=== PATIENT | female | born 1945 | race Caucasian/White ===

== ENCOUNTER 2024-06-29 10:35 | Day surgery (SDC) | payer BC, SELFPAY ==
[2024-06-28 13:12] VITALS: BMI 29.2
[2024-06-28 13:46] LABS: % Basophils 0.6 % (0-2); % Eosinophils 3.7 % (0-6); % Immature Granulocytes 0.4 % (0-0.5); % Lymphocytes 22.5 % (20.5-51.1); % Monocytes 6.2 % (1.7-9.3); % Neutrophils 66.6 % (42.2-75.2); Absolute Eosinophils 0.3 10^3/uL (0-0.7); Absolute Lymphocytes 1.6 10^3/uL (1.2-3.4); Absolute Monocytes 0.4 10^3/uL (0.1-0.6); Absolute Neutrophils 4.7 10^3/uL (1.4-6.5); Hematocrit 41.5 % (37.0-47.0); Hemoglobin 13.8 g/dL (12.0-16.0); Mean Corp Hgb Conc. 33.3 g/dL (33.0-37.0); Mean Corpuscular Volume 87.2 fL (81.0-99.0); Nucleated Red Blood Cells % 0 %; Platelet Count 241 10^3/uL (130-400); Red Blood Cell Count 4.76 10^6/uL (4.20-5.40); Red Cell Dist. Width 13.1 % (11.5-14.5)
[2024-06-28 14:21] LABS: ALT (SGPT) 17 U/L (0-35); AST (SGOT) 20 U/L (14-36); Albumin 4.6 g/dl (3.5-5.0); Alkaline Phosphatase 51 U/L (38-126); Blood Urea Nitrogen 18 mg/dl (7-17); Carbon Dioxide 27 mmol/L (22-30); Chloride 102 mmol/L (98-107); Estimated Creatinine Clearance 43 ml/min; Glucose 116 mg/dl (70-99); Potassium 4.5 mmol/L (3.5-5.1); Sodium 137 mmol/L (135-145); Total Bilirubin 0.6 mg/dl (0.2-1.3); Total Protein 6.9 g/dl (6.3-8.2); eGFR > 60.00
--- NOTE | 2024-06-28 17:59 | HPS.HSE ---
Family Physician
-
Family Physician: Kt Early
Chief Complaint
-
Left heart cath
History of Present Illness
78 year-old female, who presented to Dr. Alexander Magana with complaints described as a reflux. Patient has coronary risk factors that include hyperlipidemia age, truncal obesity, as well as strong family history with father having an [place] at 59, mother
with coronary artery disease, diagnosed in her 60s and brother with acute coronary event, at 51. Last stress echocardiogram performed September 2022 showed no evidence of ischemia. Patient had recent coronary CT angiogram which was markedly
abnormal. Test identified diffuse moderate to severe coronary disease, worst being in the left main 60�70% stenosis in the mid-distal vessel. (report scanned).
Medical History
Past Medical History
Past Medical History: Reports Other (see below)
Additional Past Medical History:
HLD
Abnormal CT Angiogram coronary calcium score
GERD
Insomnia
Depression/anxiety
truncal obesity-BMI 29.2
Past Surgical History: Reports Other (cataract)
Social History
Tobacco: Non-smoker
Alcohol: None
Family History
Family History: Early CAD (father age 59, [place]- 90yo,mother CAD in 60s- 88yo, brother ACS/cardiac arrest- 51)
Allergies / Home Medications
Allergies reflects when Allergies were last updated in [employer].
Home Medications with original date entered in [employer]
Allergy/Medication List:
see list
Review of Systems
-
A 12 point ROS was completed and negative except as noted: Yes
Physical Exam
Physical Exam
General: Well Developed and Well Nourished
HEENT: NormoCephalic
Respiratory: Clear and Non Labored Respirations
Cardiac: S1/S2 and Regular Rhythm
GI: Soft, Non Tender and Normal Bowel Sounds
Musculoskeletal: No Edema
Skin: Warm and Dry
Neuro: AO x 3 and Cranial Nerves Intact
Laboratory Results
-
06/28/24 13:19
06/28/24 13:19
Laboratory Results
Total Bilirubin 0.6 mg/dl (0.2-1.3) 06/28/24 13:19
AST 20 U/L (14-36) 06/28/24 13:19
ALT 17 U/L (0-35) 06/28/24 13:19
Alkaline Phosphatase 51 U/L (38-126) 06/28/24 13:19
Impression/Plan
-
IMPRESSION/PLAN:
L heart cath
[2024-06-29] VITALS (20 sets, daily range): BP systolic 103–142; BP diastolic 57–91
--- NOTE | 2024-06-29 16:43 | ITS.CL.PN ---
Supervisor Coating - Procedure Note
Procedure
Procedure Note:
CARDIAC CATHETERIZATION REPORT
Date of Procedure: 06/30/2024
Referring: Dr. Alexander Magana MD
Indication: high-grade left main disease on coronary CTA
PROCEDURE(S)
1. left heart catheterization
2. coronary angiography
ACCESS: 6F right radial artery (closure: radial band)
CATHETERS
1. 6F JR4
2. 6F JL4
MODERATE SEDATION: 25 minutes of moderate sedation was utilized. An independent medical lab scientist was present to assist with and help manage the patient's level of consciousness and physiologic status.
ULTRASOUND GUIDED VASCULAR ACCESS (right radial artery): Ultrasound was utilized for vascular access. The vessel was visualized under ultrasound and noted to be patent. An image of the vessel was stored permanently in the patient's medical record.
Under direct ultrasound guidance, vascular access was obtained using a modified Seldinger technique and a 6 Slovak sheath was placed.
HEMODYNAMIC DATA
LV 131/9 (EDP 12) mmHg
AO 135/71 (mean 97) mmHg
CORONARY ANGIOGRAPHY
Dominance: right
LM: large vessel with an eccentric 80% nodular calcific lesion in the distal vessel
LAD: large vessel giving rise to two small diagonal branches. There is a 40% calcific stenosis in the mid vessel and otherwise mild disease elsewhere.
LCx: moderate caliber vessel giving rise to a moderate caliber OM1, small OM2, and small OM3. There is 50-60% calcific disease in the proximal vessel and otherwise mild luminal irregularities.
RCA: Large vessel giving rise to a small caliber bifurcating RPDA, moderate caliber RPL1, and small RPL2. There is an 80% stenosis in the proximal aspect of the RPL1. There is moderate disease in the proximal limb of the RPDA prior to the vessel
bifurcation.
RADIATION: dose 247 mGy; DAP 14.3 Gy*cm2; fluoroscopy time 4.5 min
CONCLUSIONS
1. severe coronary artery disease as described with high grade calcific distal left main disease
2. normal LV filling pressure and no aortic stenosis
RECOMMENDATIONS
1. expectant management after cardiac catheterization via right radial approach
2. cont. ASA and high intensity statin
3. referral for coronary artery bypass grafting with CONNELLY-LAD and additional grafts to one more more obtuse marginal branches.
Copy to: Dr. Alexander Magana MD (enterprise infrastructure architect); Dr. Kt Early MD (PCP)
Signed: Rahul Melendez MD, PhD
== END 2024-06-29 18:35 | disposition home or self-care (01) ==
LOC: CATH 10:35
PROVIDERS: ATTENDING PHYSICIAN Student in an Organized Health Care Education/Training Program; FAMILY PHYSICIAN Family Medicine; OTHER PHYSICIAN Internal Medicine Cardiovascular Disease
DX: I25.10 Atherosclerotic heart disease of native coronary artery without angina pectoris (principal); E78.5 Hyperlipidemia, unspecified; K21.9 Gastro-esophageal reflux disease without esophagitis; Z82.49 Family history of ischemic heart disease and other diseases of the circulatory system; Z79.82 Long term (current) use of aspirin
CPT/HCPCS: 99152; 99153; C1894; 36415; 76937; 80053; 85025; 93005; 93458; Q9967

== ENCOUNTER 2024-07-13 07:33 | Inpatient (IN) | payer OTHER, SELFPAY ==
[2024-07-12 08:27] VITALS: BMI 29.0
[2024-07-12 09:28] LABS: Urine Albumin Negative (Neg - Trace); Urine Bilirubin Negative (Negative); Urine Character Clear (Clear); Urine Color Yellow; Urine Glucose Negative (Negative); Urine Ketone Negative (Negative); Urine Leukocyte 1+ (Negative); Urine Nitrite Negative (Negative); Urine Occult Blood Negative (Negative); Urine Urobilinogen Negative (Neg - 1+)
[2024-07-12 09:31] LABS: % Basophils 0.4 % (0-2); % Eosinophils 4.3 % (0-6); % Immature Granulocytes 0.6 % (0-0.5); % Lymphocytes 22.3 % (20.5-51.1); % Monocytes 5.5 % (1.7-9.3); % Neutrophils 66.9 % (42.2-75.2); Absolute Eosinophils 0.3 10^3/uL (0-0.7); Absolute Lymphocytes 1.6 10^3/uL (1.2-3.4); Absolute Monocytes 0.4 10^3/uL (0.1-0.6); Absolute Neutrophils 4.7 10^3/uL (1.4-6.5); Hematocrit 41.5 % (37.0-47.0); Hemoglobin 13.9 g/dL (12.0-16.0); Mean Corp Hgb Conc. 33.5 g/dL (33.0-37.0); Mean Corpuscular Hgb 29.4 pg (27.0-31.0); Mean Corpuscular Volume 87.7 fL (81.0-99.0); Mean Platelet Volume 9.9 fL (7.4-10.4); Nucleated Red Blood Cells % 0 %; Platelet Count 235 10^3/uL (130-400); Red Blood Cell Count 4.73 10^6/uL (4.20-5.40); Red Cell Dist. Width 13.2 % (11.5-14.5)
[2024-07-12 09:41] LABS: PT 13.5 Sec (11.4-14.6)
[2024-07-12 09:42] LABS: APTT 28.9 Sec (23.4-35.0)
[2024-07-12 10:19] LABS: ALT (SGPT) 20 U/L (0-35); AST (SGOT) 23 U/L (14-36); Albumin 5.1 g/dl (3.5-5.0); Alkaline Phosphatase 51 U/L (38-126); Blood Urea Nitrogen 16 mg/dl (7-17); Carbon Dioxide 28 mmol/L (22-30); Chloride 102 mmol/L (98-107); Direct Bilirubin 0.2 mg/dl (0.0-0.4); Estimated Creatinine Clearance 49 ml/min; Glucose 85 mg/dl (70-99); Potassium 4.4 mmol/L (3.5-5.1); Sodium 140 mmol/L (135-145); Total Bilirubin 0.8 mg/dl (0.2-1.3); Total Protein 7.1 g/dl (6.3-8.2); eGFR > 60.00
[2024-07-12 10:20] LABS: Urine Mucus Many
[2024-07-12 10:21] LABS: Urine Amorphous Seen; Urine Red Blood Cell 0-2 /HPF (0-2)
[2024-07-12 10:42] LABS: Glycohemoglobin (HgbA1c) 5.2 % (4.0-5.6)
--- NOTE | 2024-07-12 10:42 | CM ---
spoke to pt in PAT's, she is prev indep, lives alone in an apt with 2 steps to enter. her neice and son are closeby and supportive, and said someone will stay with her overnight for a few nights. she denies any dme's, she is agreeable to a f/u
visit from the ct transitional care nurse after dc. cm role explained and all questions answered.
--- NOTE | 2024-07-12 23:30 | W.PN.CT ---
Assessment / Plan
-
Assessment:
-S/P Standard sternotomy/ CABG x 4 (In situ CONNELLY to LAD, Ao to RSVG to OM 1, Ao to RSVG to RPL B sequential to RPDA)/Harvesting of internal mammary artery/Endoscopic vein harvesting of right lower extremity/Left atrial appendage exclusion [35 mm
clip], by Dr Perez, 07/13/24, pod#1
-Obstructive CAD involving 80% RCA/80% distal LM
-Abnormal CT Angiogram coronary calcium score
-Strong family hx of CAD
-LVEF 55-60% per intraop BERNARDO
-HLD
-Class 1 obesity (BMI 30)
-GERD/Hiatal hernia
-Insomnia
-Depression/anxiety
-Vertigo
-S/p cardiac cath, 06/29/24
-S/p Cataract surgery, 09/2023
-S/P Appendectomy
-Acute postop blood loss/Anemia (stable without transfusion)
-Acute postop atelectasis
-Acute postop hypovolemia with subsequent hypervolemia
Plan:
-No major issues overnight. Hemodynamically and neurologically stable
-Successfully extubated yesterday 07/13/24 @ 1755
-Weaned off Levophed gtt overnight, remains on Insulin gtt per protocol
-No swan, U/O mL since OR
-Current rhythm is NSR @ 70 bpm
-Monitor chest tube output: 2meds , L pl . CXR this AM looks clear with mild atelectasis on my review. F/U official report
-Cont. current meds (ASA, Plavix, Crestor, Amiodarone, Lopressor if PM permits)
-D/C'd swan and a-line @
-D/C'd antoinette @ 0600
-Will transition to tele phase today when off insulin gtt per protocol
-Maintain cordis
-Maintain temporary PW (will pull in 1-2 days)
-Encourage use of IS
-Wean off of O2 as tolerated
-OOB into chair/Ambulate
Subjective
-
Date of Service: July 12, 2024
Objective Data
-
Lab Results
07/12/24 08:41
07/12/24 08:41
PT 13.5 Sec (11.4-14.6) 07/12/24 08:41
INR 1.00 07/12/24 08:41
APTT 28.9 Sec (23.4-35.0) 07/12/24 08:41
[2024-07-13] VITALS (13 sets, daily range): BP systolic 83–110; BP diastolic 41–73
[2024-07-13] MEDS: BACTROBAN 2% OINTMENT 1 APPLIC NASAL ×2 (07:57→20:34)
[2024-07-13] MEDS: MAGNESIUM OXIDE 500 MG PO (07:57)
[2024-07-13] MEDS: LOPRESSOR 25 MG PO (07:57)
[2024-07-13] MEDS: PROTONIX 40 MG PO (07:57)
--- NOTE | 2024-07-13 08:01 | W.CVOR.SURPR ---
CVOR Surgeon Immed Pre Op
-
I have examined this patient prior to performance of the scheduled procedure.
The patient's condition is unchanged from the time of the dictated/written History and
Physical and the patient is able to undergo the scheduled procedure.
CABG + TALIB Clip
--- NOTE | 2024-07-13 08:08 | PTCARENOTE ---
Received pt into [address] Perez this am; pt confirmed 2 CHG showers at home and NPO since 2200 07/12/24; Xanax and Sertraline take per Dr Perze at 0600; medication list reviewed with patient; education provided on surgery; family at
bedside and updated; awaiting CVOR.
[2024-07-13 08:58] LABS: Urine Albumin Negative (Neg - Trace); Urine Bilirubin Negative (Negative); Urine Character Clear (Clear); Urine Color Yellow; Urine Glucose Negative (Negative); Urine Ketone Negative (Negative); Urine Leukocyte Negative (Negative); Urine Nitrite Negative (Negative); Urine Occult Blood Negative (Negative); Urine Specific Gravity 1.005 (<1.030); Urine Urobilinogen Negative (Neg - 1+)
[2024-07-13 09:37] LABS: ACT+ - POC 104 Seconds (82-134)
[2024-07-13 09:40] LABS: Glucose - POC 123 mg/dl (70-99); HCO3 - POC 24 mmol/L (21-28); Hematocrit - POC 31 % PCV (37-47); Hemodilution- POC No; Hemoglobin Calculated - POC 10.7; Ionized Calcium - POC 1.15 mmol/L (1.15-1.33); Lactate - POC 0.46 mmol/L (0.36-0.75); O2 Saturation %Calculated-POC 99.9 % (94-98); PCO2 - POC 36 mmHg (35-48); PO2 - POC 279 mmHg (83-108); Sodium - POC 142 mmol/L (136-145); Specimen Type - POC Arterial; pH - POC 7.44 (7.35-7.45)
[2024-07-13 10:31] LABS: ACT+ - POC 540 Seconds (82-134)
[2024-07-13 10:53] LABS: ACT+ - POC 609 Seconds (82-134)
[2024-07-13 11:24] LABS: ACT+ - POC 504 Seconds (82-134)
--- NOTE | 2024-07-13 11:39 | CM ---
pt in OR today, cm to follow
[2024-07-13 11:55] LABS: B.E. - POC 2.5 mmol/L; Glucose - POC 163 mg/dl (70-99); HCO3 - POC 28 mmol/L (21-28); Hematocrit - POC 27 % PCV (37-47); Hemodilution- POC Yes; Ionized Calcium - POC 1.05 mmol/L (1.15-1.33); O2 Saturation %Calculated-POC 99.9 % (94-98); PCO2 - POC 50 mmHg (35-48); PO2 - POC 337 mmHg (83-108); Potassium - POC 5.1 mmol/L (3.5-5.1); Sodium - POC 141 mmol/L (136-145); Specimen Type - POC Arterial; pH - POC 7.37 (7.35-7.45)
[2024-07-13 11:58] LABS: ACT+ - POC 101 Seconds (82-134)
[2024-07-13 12:13] LABS: B.E. - POC 0.3 mmol/L; Glucose - POC 135 mg/dl (70-99); HCO3 - POC 26 mmol/L (21-28); Hematocrit - POC 26 % PCV (37-47); Hemodilution- POC Yes; Hemoglobin Calculated - POC 8.9; Ionized Calcium - POC 0.93 mmol/L (1.15-1.33); Lactate - POC < 0.30 mmol/L (0.36-0.75); O2 Saturation %Calculated-POC 99.9 % (94-98); PCO2 - POC 45 mmHg (35-48); PO2 - POC 351 mmHg (83-108); Potassium - POC 5.1 mmol/L (3.5-5.1); Sodium - POC 139 mmol/L (136-145); Specimen Type - POC Arterial; pH - POC 7.37 (7.35-7.45)
[2024-07-13 12:18] LABS: B.E. - POC -2.7 mmol/L; Glucose - POC 191 mg/dl (70-99); HCO3 - POC 21 mmol/L (21-28); Hematocrit - POC 24 % PCV (37-47); Hemodilution- POC Yes; Hemoglobin Calculated - POC 8.3; Ionized Calcium - POC 1.44 mmol/L (1.15-1.33); Lactate - POC 1.81 mmol/L (0.36-0.75); O2 Saturation %Calculated-POC 97.3 % (94-98); PCO2 - POC 29 mmHg (35-48); PO2 - POC 87 mmHg (83-108); Potassium - POC 4.3 mmol/L (3.5-5.1); Sodium - POC 142 mmol/L (136-145); Specimen Type - POC Arterial; pH - POC 7.46 (7.35-7.45)
--- NOTE | 2024-07-13 12:34 | W.PN.CT.SURG ---
CT Surgery Operative Note
-
CARDIAC SURGERY OPERATIVE REPORT
Preoperative Diagnosis: Multivessel Coronary Artery Disease with involvement of the left main
Postoperative Diagnosis: Same
Procedure(s) Performed:
1. Standard sternotomy aortic and right atrial cannulation
2. Harvesting of internal mammary artery
3. Coronary artery bypass grafting x 4 (In situ CONNELLY to LAD, Ao to RSVG to OM 1, Ao to RSVG to RPL B sequential to RPDA)
4. Left atrial appendage exclusion [35 mm clip]
5. Endoscopic vein harvesting of right lower extremity
6. Transesophageal echocardiography
7. Placement temporary ventricular pacing wire
Date of Surgery: 07/13/2024
Comorbidities:
1. Multivessel coronary artery disease involving the distal left main, high-grade obstruction
2. Stable angina
3. Hyperlipidemia
4. Hypertension
5. GERD
6. Hiatal hernia
7. Depression/anxiety
Attending Surgeon: Donovan Perez MD, MS
Assistants: Mita Sanchez PA-C (present and necessary to personalized living assistant, endoscopic vein harvest, retraction, suction, exposure, suture management, and wound closure under my direction)
Anesthesiology: Fabian Blum MD and Camelia Michelle CRNA
Scrub and Circulating RNs: Gibson Osborne RN, Sabiha Chopra RN
Superintendent Landfill Operations: Rica Leon CCP
Anesthesia: GETA
EBL: per perfusion records
Products: None
CPB Time: 74 minutes
Aortic Cross Clamp Time: 66 minutes
Indication(s) for Procedures: This is a 78-year-old female with a strong family history of coronary artery disease. She underwent a left heart cath and was found to have significant high-grade distal left main disease as well as a PLASTER HELPER to the RPL B.
She has frequent GERD like symptoms which is likely her angina equivalent. Given her disease pattern she was offered surgical revascularization. Given her elevated [id number] score her left atrial appendage was planned to be ligated at time of
surgery.
Conduit(s) Quality:
CONNELLY -excellent/skeletonized
RSVG -good/minor thickening and some varicosities but overall pretty much uniform
Target(s) Quality:
RPL B and PDA -good/overall small size targets were able to accommodate a 1.5 mm probe, thin-walled, flow probe assessment yielded a mean flow of approximately 12 to 15 cc a minute with a pulsatile index of 5.9
OM -good/mean flow of approximate 21 cc a minute with a pulsatility index of 2.6
LAD -excellent/this was her best quality target, mean flow of 25 cc a minute with a pulsatile index of 3.0
Findings: Her left ventricular ejection fraction preoperatively was approximately 50% with no significant regional wall motion abnormalities. Following surgery EF did look more vigorous at 60% with no new regional wall motion abnormalities. The
CONNELLY was harvested in a skeletonized fashion. Following bypass grafting, test dose cardioplegia was given down each distal and confirmed patency and hemostasis. Each distal was probed both proximally and distally to confirm disease and patency,
respectively. Her left atrial appendage was verified to be free of any thrombus or debris preoperatively and found to be totally occlusive postoperatively with a left atrial appendage clip [serial number [id number]]. She did not require any blood
products, she was in sinus rhythm after short period of ventricular pacing.
Description of Procedure: The patient was taken to the operating room. Their identity and procedure to be performed were verified and they were positioned supine on the operating table. Induction via general anesthesia with endotracheal intubation
was performed and central venous access and arterial monitoring were inserted. A preoperative transesophageal echocardiogram was performed to assess cardiac function and valvular function. The patient was then prepped and draped from chin to feet in
a sterile fashion. A preoperative time-out was performed with all members of the team present. A midline chest incision was performed along with median sternotomy. Simultaneous endoscopic access of the right lower extremity for saphenous vein
harvest was obtained along with administration of an initial 5,000 units of IV heparin. A RulTract sternal retractor was positioned to exposure the left internal mammary bed. The mammary was harvested and found to have good flow. A bulldog clamp was
applied to the distal end of the mammary after dividing it. It was wrapped in a papaverine soaked RayTec and replaced back into the left hemithorax. The RulTract was exchanged for a median sternal retractor. The innominate vein was isolated. Full
heparinization was given (a total of 40,000 units). We created a pericardial well. The aortic cannulation site was chosen where it was soft, pliable, and free of calcium. Cannulation was performed with an arterial cannula in the ascending aorta and
a triple-stage venous cannula through the right atrial appendage. The arterial cannula line had an appropriate bounce and correlating pressures with test dosing. Next, a root vent/antegrade cannula was inserted into the ascending aorta. The ACT was
confirmed to be over 400 and retrograde autologous priming was performed before commencing cardiopulmonary bypass. The pulmonary artery was away from the aorta to facilitate a clamp site. The aortic cross-clamp was placed after decreasing
the flow on the bypass and mean arterial pressure. A total of 1.2L initial dose of antegrade Del-Nido cardioplegia solution was given and planned for re-dosing every 75 minutes as necessary. There was rapid electro-mechanical arrest of the heart at
300 cc of cardioplegia. The left ventricle was observed for distention on echocardiogram and manual palpation. Cold slush was placed into a sponge and topically on the RV while we systemically cooled to 34 degrees centigrade. Once heart was fully
arrested it was rotated medially and the left atrial appendage was clipped after dividing the ligament of Moise.
I positioned the heart to expose the distal right coronary at the posterior lateral artery. A kake blade was used to expose the coronary and perform the arteriotomy. Coronary Goff scissors were used to enlarge the incision. The saphenous vein was
trimmed and beveled to an appropriate size. The distal anastomosis was performed using 8-0 prolene in an end-to-side fashion. And secured with a micro core knot antegrade cardioplegia was administered into the graft. Appropriate hemostasis and flow
were confirmed. The graft was then measured in order to accommodate a sequential graft to the RPDA. The underbelly of the vein graft was divided with a knife and enlarged with Goff scissors. The distal graft was prepared in a similar fashion. A
obub-np-rkym anastomosis was created with 8-0 Prolene and secured with a micro core knot. Antegrade cardioplegia was given down the graft with the distal end clamped. The graft was measured for length to the aorta and cut. A suitable site on the
obtuse marginal was chosen. We dissected and prepared the distal target in a similar fashion. An end-to-side anastomosis was created with a 8-0 prolene and secured with a micro corner. Antegrade cardioplegia was administered into the graft.
Appropriate hemostasis and flow were confirmed. The graft was measured for length to the aorta and cut. A suitable target on the mid/distal left anterior descending was identified. We dissected and prepared the distal target in a similar fashion. We
retrieved the CONNELLY from the chest and created a pericardial opening while being cognizant of the phrenic nerve to facilitate the course of the mammary. The distal end of the mammary was prepped and beveled to size. We verified orientation and length
of the LUCIO and found brisk flow. An end-to-side anastomosis was created with a 7-0 prolene. We temporarily released the bulldog clamp on the mammary to inspect flow. Perfusion to the LAD territory was visualized and hemostasis was confirmed. The
bull clamp was replaced on the mammary. The heart was filled and the root was distended with antegrade cardioplegia to make final assessment of graft length and orientation. We created 2 aortotomies using a #11 blade then a 4.0mm aortic punch. The
proximal anastomoses were created in an end-to-side fashion using 6-0 prolene. At the the same time, we re-warmed to 36.5 degrees centigrade. The bulldog clamp was removed from the mammary. Temporary bipolar ventricular pacing wires were placed on
the base of the right ventricle. The patient was placed in a Trendelenburg position and flows on bypass were lowered. The aortic cross clamp was removed and flows were slowly brought back up. All bypass grafts were inspected and were free from
kinking or twisting. The distal and proximal anastomoses appeared hemostatic. Once transesophageal echocardiography appeared satisfactory for de-airing, the flows were temporarily lowered for root vent removal. After verifying acceptable
parameters, we initiated weaning from cardiopulmonary bypass. Once we were off cardiopulmonary bypass, the venous cannula was clamped and removed. A test dose of protamine was administered and the patient was monitored for any adverse reaction
before resuming protamine. Once half of the protamine dose was delivered, pump suckers were turned off and the systolic blood pressure was lowered for aortic decannulation. The aortic cannula was removed and pursestrings were tied down. All
cannulation sites were oversewn with a 4-0 prolene. The mammary bed was inspected and hemostasis was confirmed. Once the mediastinum was hemostatic, 19Fr Lonnie drain was placed in the left pleural cavity and two 24Fr Lonnie drains were placed within
the pericardium. The sternum was approximated with 4 #7 single and 3 #8 double stainless steel wires. Fascia was approximated with #1 vicryl suture. The subcutaneous, dermis and epidermis were closed in layers in a running fashion. The skin wound
was cleansed and dressed.
All instrument, sponge, and needle counts were confirmed to be correct x 2 at the end of the operation. The patient was transferred to the cardiac intensive care unit in critical but stable condition.
I, Dr. Donovan Perez, was present, scrubbed for, and performed all critical elements of this procedure.
Donovan Perez MD, MS
Cardiothoracic Surgeon
[facility]
This operative dictation was created using the [employer] dictation system. Please excuse any grammatical, typographical, or 'sound alike' errors
[2024-07-13] MEDS: LR 250 ML IV ×3 (13:20→19:00)
[2024-07-13] MEDS: CALCIUM CHLORIDE 10% SYRINGE 500 MG IV (13:20)
[2024-07-13 13:23] LABS: B.E. -0.8 mmol/L; HCO3 23.2 mmol/L (21-28); Ionized Calcium 1.27 mMOL/L (1.15-1.33); PCO2 35 mmHg (32-35); PO2 134 mmHg (83-108); Potassium 3.8 mMOL/L (3.5-5.1); Sodium 138 mMOL/L (136-145); pH 7.43 (7.35-7.45)
[2024-07-13 13:24] LABS: O2 Therapy vent
--- NOTE | 2024-07-13 13:30 | PTCARENOTE ---
Patient received from CVOR @1310. SHRUTI. Pt intubated and sedated. Sinusbradycardia on monitor SBP 60s on arrival, CVNP at bedside 500mg Calcium given and LR 500 bolus. RIJ Corids/SLIC, Left A-line and PIV x1 all patent, all lines leveled and
zeroed; Precedex and Insulin infusing see flow sheet for details. Radial pulses present bilateral. Pedal pulses present w/ Doppler. ETT size 8, 22 @ the lip. Vent settings SIMV 470/12/5/40. CT x3 to -20 wall suction no air leak, crepitus or
tidaling. Bowel sounds hypoactive. Winter draining clear yellow urine WNL. Surgical dressing C/D/I. Dilaudid given for pain see MAR for details. See nursing documentation for further details.
[2024-07-13] MEDS: DILAUDID 0.5 MG IV ×2 (13:31→21:09)
[2024-07-13 13:36] LABS: APTT 26.8 Sec (23.4-35.0); INR 1.34; PT 16.8 Sec (11.4-14.6)
--- NOTE | 2024-07-13 13:36 | W.PN.CD ---
Addendum entered and electronically signed by Pj Mir MD 07/13/24 16:03:
Patient seen and examined in collaboration with CLIP LOADING MACHINE FEEDER; agree with below.
-78-year-old female admitted for CABG today.
-Clinically stable postop; on low-dose Levophed.
-Remains intubated.
-Continue youth nutritional monitor.
-Routine postsurgical care as directed by CT Surgery.
-Will follow.
Original Note:
Today's Communication / Plan
-
Follow telemetry
Postoperative management per CT surgery
Impression / Plan
-
I/P: 78F with an elevated coronary calcium score who endorsed chest discomfort and had a CT angiogram which was abnormal and prompted cardiac catheterization. Cardiac catheterization demonstrated severe CAD with high-grade calcific distal left main
disease and she presents today for CABG
Outpatient locomotive inspector: Dr. Alexander Franklin
CAD s/p CABG x 4 (In situ CONNELLY to LAD, Ao to RSVG to OM 1, Ao to RSVG to RPL B sequential to RPDA) & TALIB clip by Dr. Perez on 07/13/2024
-Pre-LVEF 50%, post LVEF 60% without RWMA
-Responded well to IV fluids post op
-Postoperative EKG sinus bradycardia with first-degree AV block, stable
-Follow telemetry
-Postoperative management per CT surgery
Dyslipidemia, on rosuvastatin 20 mg, goal LDL <55
SUBJECTIVE:
Intubated and sedated. Operative report reviewed.
Physical Exam
Vital Signs/Labs
Vital Signs
Temp Pulse Resp Pulse Ox
98.3 F 61 12 99
07/13/24 08:40 07/13/24 13:20 07/13/24 13:20 07/13/24 13:20
07/12/24 07/13/24 07/14/24
06:59 06:59 06:59
Actual Weight 65.1 kg
PT 13.5 Sec (11.4-14.6) 07/12/24 08:41
INR 1.00 07/12/24 08:41
APTT 28.9 Sec (23.4-35.0) 07/12/24 08:41
Physical Exam
Constitutional: No acute distress and Comfortable
EENT: Anicteric and Moist mucous membranes
Cardiovascular: Rhythm & rate is regular, Pedal edema is absent, S1S2 is normal and Rub present
Respiratory: Lungs clear to auscul. and Other (Mechanical ventilation)
GI: Soft, Distention absent, Flat, Non tender and Normal bowel sounds
Neuro/Psych: Other (Sedated)
Other: Skin (Warm and dry without edema)
Data Reviewed
-
Date of Service: July 13, 2024
EKG: Report Reviewed by me
Labs: Labs Reviewed by me
Old Records: Reviewed
[2024-07-13 13:38] LABS: Hematocrit 28.7 % (37.0-47.0); Platelet Count 195 10^3/uL (130-400)
--- NOTE | 2024-07-13 13:43 | W.PN.UPDATE ---
Update Note
Progress Note Update
78-year-old female is electively admitted on 07/13/2024 for CABG due to left main/triple-vessel coronary disease.
Blood:� none
Wires:� bipolar V-wire
Infusions: Levophed off on arrival, Insulin
Sedatives:� Precedex 0.6
�
NEURO: sedated, pupils +2mm B/L
RESP: #8OT @22cm> 470/40%/12/5. Lungs clear B/L. 2 mediastinal (15cc on arrival) and L pleural (15cc on arrival) chest tubes to -20cm suction. Sanguineous drainage, no air leak, no crepitus
CV: RRR +S1, S2, no S3, no�rub, no murmur. Dermabond to median sternotomy. RIJ w/slick intact. Surgical bra intact
ABD: obese, round, soft, no BS
EXT: no edema, +2/4 DP pulses B/L, no femoral bruit, RLE SELVIN wrap intact; left radial A-line intact
: Winter with clear yellow urine
�
A/P: POD #0 s/p CABG x 4 (CONNELLY to LAD, SVG to OM 1, SVG to RPL B sequential to RPDA), eft atrial appendage exclusion [#35 mm clip]
BERNARDO: EF�55-60%, tr-mild MR, Mild TR
- wean and extubate
- ETT low>repositioned @ 20cm. Repeat CXR-adequate position
#CAD
- will require ASA, Plavix, high intensity statin
- hold beta-caitlin if HR <55
# Acute post-op hypovolemia
- LR bolus, adjusting Levophed to maintain SBP 90-130mmHg
�
# acute surgical blood loss anemia-expected
- trend CBC
�
# Post-op hyperglycemia (POC glucose 146)
- insulin infusion x 24h
- pre-op A1C 5.2
�
# Anxiety
- resume Sertraline, Ambien and prn xanax POD #1
# GERD
- Protonix while receiving Plavix (on Pepcid @ home)
--- NOTE | 2024-07-13 13:50 | PTCARENOTE ---
CRX obtained, CV LOAD TEST MECHANIC at bedside. ETT pulled back from 22 to 20. Repeat CRX obtained to confirm placement.
[2024-07-13 14:02] LABS: Blood Urea Nitrogen 14 mg/dl (7-17); Estimated Creatinine Clearance 65 ml/min; Glucose 140 mg/dl (70-99)
[2024-07-13 14:04] LABS: Glucose - Point of Care 118 mg/dl (70-99)
[2024-07-13 14:04] LABS: Glucose - Point of Care 149 mg/dl (70-99)
[2024-07-13] MEDS: KCL 50 IV ×2 (14:21→15:35)
[2024-07-13] MEDS: ANCEF 10 IV ×2 (14:46)
[2024-07-13] MEDS: ZOLOFT PO (14:47)
[2024-07-13] MEDS: NSS 500 IV ×2 (14:47→21:41)
[2024-07-13] MEDS: NEURONTIN PO ×2 (14:47→17:23)
[2024-07-13] MEDS: CRESTOR PO (14:47)
[2024-07-13] MEDS: TYLENOL PO (14:47)
[2024-07-13 15:06] LABS: Glucose - Point of Care 106 mg/dl (70-99)
--- NOTE | 2024-07-13 15:31 | PTCARENOTE ---
Respiratory at bedside. Patient placed on CPAP.
[2024-07-13] MEDS: OFIRMEV 100 IV (16:00)
[2024-07-13 16:10] LABS: B.E. - POC 0.1 mmol/L; Blood Urea Nitrogen - POC 14 mg/dl (3-120); Chloride - POC 110 mmol/L (96-111); Creatinine - POC 0.56 mg/dl (0.3-1.0); Glucose - POC 154 mg/dl (70-99); HCO3 - POC 24 mmol/L (21-28); Hematocrit - POC 28 % PCV (37-47); Hemodilution- POC Yes; Hemoglobin Calculated - POC 9.7; Lactate - POC 1.89 mmol/L (0.36-0.75); PCO2 - POC 36 mmHg (35-48); PO2 - POC 126 mmHg (83-108); Potassium - POC 3.6 mmol/L (3.5-5.1); Sodium - POC 143 mmol/L (136-145); Specimen Type - POC Arterial; pH - POC 7.44 (7.35-7.45)
[2024-07-13 16:11] LABS: Glucose - Point of Care 94 mg/dl (70-99)
[2024-07-13 16:16] LABS: B.E. - POC 0.2 mmol/L; Blood Urea Nitrogen - POC 14 mg/dl (3-120); Chloride - POC 107 mmol/L (96-111); Creatinine - POC 0.68 mg/dl (0.3-1.0); Glucose - POC 100 mg/dl (70-99); HCO3 - POC 27 mmol/L (21-28); Hematocrit - POC 33 % PCV (37-47); Hemodilution- POC Yes; Hemoglobin Calculated - POC 11.1; Ionized Calcium - POC 1.39 mmol/L (1.15-1.33); Lactate - POC 1.56 mmol/L (0.36-0.75); O2 Saturation %Calculated-POC 98.3 % (94-98); PCO2 - POC 50 mmHg (35-48); PO2 - POC 120 mmHg (83-108); Potassium - POC 5.2 mmol/L (3.5-5.1); Sodium - POC 142 mmol/L (136-145); Specimen Type - POC Arterial; pH - POC 7.33 (7.35-7.45)
--- NOTE | 2024-07-13 16:16 | PTCARENOTE ---
Blood sample obtained. CVNP at bedside for EPOC ABG. ABG resulted per CVNP place patient back on SIMV and recheck in 1 hr.
--- NOTE | 2024-07-13 16:41 | PTCARENOTE ---
Patient turned and repositioned. No dumping noted in chest tubes. Mouth care provided, suction and swabbed teeth.
[2024-07-13 17:06] LABS: Glucose - Point of Care 116 mg/dl (70-99)
--- NOTE | 2024-07-13 17:18 | PTCARENOTE ---
Respiratory at bedside. Patient placed back on CPAP.
[2024-07-13] MEDS: PACERONE PO (17:23)
--- NOTE | 2024-07-13 17:31 | CON.INTV ---
Consultation
Consultation Request
Date/Time Consultation Requested: 07/13/2024
Date/Time Consultation Performed: 07/13/2024
Requesting Provider: Donovan Perez
Performing Provider: Amrik Hernández
Reason for Consultation: post cardiac surgery
Medical History
-
Chief Complaint: Chest discomfort
History of Present Illness:
Patient is a 78-year-old female with a history of chest discomfort and elevated calcium score who had a CT angiogram which was abnormal which was followed by cardiac catheterization demonstrating severe coronary artery disease. Patient was
subsequently referred for coronary artery bypass graft. Patient today had CABG performed and was transferred to CVICU postsurgically. Final Block Press Operator consult was requested for further management.
Past medical history. Hyperlipidemia, anxiety, gastroesophageal reflux disease
Past surgical history. Appendectomy, cataract surgery.
Family history. Strong family history of coronary artery disease.
Social history. Patient denies any smoking in the past. No reported use of marijuana.
Allergies / Home Medications
Allergies
Allergy/AdvReac Type Severity Reaction Status Date / Time
tree nut Allergy EDEMA/RASH/ Verified 07/08/24 08:35
ANASARCA
Home Medications
�Medication �Instructions �Recorded �Confirmed �Last Taken �Type
alprazolam 0.25 mg tablet (Xanax) 0.25 mg PO PRN PRN ANXIETY 06/25/24 07/13/24 07/13/24 06:30 History
aspirin 81 mg tablet,delayed 81 mg PO DAILY Blood Clot 06/25/24 07/13/24 07/12/24 08:00 History
release Prevention/Tx
cholecalciferol (vitamin D3) 50 100 mcg PO DAILY Supplement 06/25/24 07/13/24 07/02/24 08:00 History
mcg (2,000 unit) capsule (Vitamin
D3)
famotidine 40 mg tablet (Pepcid) 40 mg PO BID Gastrointestinal Issue 06/25/24 07/13/24 07/12/24 08:00 History
rosuvastatin 20 mg tablet (Crestor) 20 mg PO DAILY High Cholesterol 06/25/24 07/13/24 07/12/24 18:00 History
zolpidem 5 mg tablet (Ambien) 5 mg PO HS Sleep 06/25/24 07/13/24 07/12/24 22:00 History
nitroglycerin 0.4 mg sublingual 0.4 mg sublingual [id number] PRN 06/29/24 07/13/24 Unknown Rx
tablet chest pain #25 tabs
sertraline 150 mg capsule 150 mg PO DAILY Mental 07/08/24 07/13/24 07/13/24 05:00 History
Health/Anxiety
Review of Systems
-
Unable to Obtain full review of systems at this time due to: Patient Intubation
Vitals / Labs / Diagnostic Testing
Vital Signs
Temp Pulse Resp BP Pulse Ox
100.3 F 61 12 96/56 100
07/13/24 17:07 07/13/24 17:05 07/13/24 17:07 07/13/24 17:00 07/13/24 17:15
Lab Data
07/13/24 13:13
Laboratory Results
07/13/24
13:13
PT 16.8 H
INR 1.34
APTT 26.8
pH 7.43
pCO2 35
pO2 134 H
HCO3 23.2
O2 Delivery Level vent
Microbiology
07/12/24 08:41 Nose MRSA Screen - Final
No Methicillin Resistant Staphylococcus aureus isolated.
07/12/24 08:33 Urine Urine Culture - Final
No Significant Growth
Diagnostic Testing:
Physical Exam
-
HEENT: Normocephalic
Cardiovascular: Regular Rhythm
Respiratory: Clear and Non-Labored Respirations
GI: Soft and Non Distended
Neurology: Awake
Skin: Warm
General: Comfortable
Assessment
-
S/p coronary artery bypass graft x 4 with left atrial appendage exclusion, endoscopic vein harvesting of right lower extremity, temporary ventricular pacing wire placement POD # 0
Titrate off pressors per protocol, currenlty only on Levophed 3
Cardiac cath result reviewed
PA catheter readings reviewed
Management of chest tubes per primary service
Intubated/off sedation, awake, responsive. on PS with 5/5, tolerating well with good tidal volume, anticipate extubation in coming hours
Pain control RASS goal of 0 to -1
ABG(s) reviewed, 7.134
CXR reviewed, LLL effisoon vs atelectasis
Extubate per protocol
Maintain supplement oxygen as needed
No prior history of pulmonary diseas, never smokede
Can add nebulizers if needed
Aspiration precautions
Encouraged incentive spirometry, OOB/ambulation/early mobility
Advance diet as tolerated following extubation
GI prophylaxis if indicated for mechanical ventilation >48 hours
Monitor critical I/O's
Winter/chest tube output
Hb/platelets postoperatively stable
Trend CBC for now
Can transfuse if indicated for Hb <7, plt <50 in surgical patients
DVT prophylaxis including SCDs
Insulin protocol initiated and ongoing
Transition to SQ/off as indicated per team
We will follow
Critical Care time 42 mins -- The patient is admitted for acute critical illness for the treatment of vital organ failure and/or prevention of further life-threatening conditions. Total care includes time spent in review of history, physical exam,
medications, hemodynamic/ventilator parameters, laboratory data, imaging and discussion with house staff, pharmacy, respiratory therapy, skin piler, and nursing.
Data:
Cardiac cath 06/2024: 1. severe coronary artery disease as described with high grade calcific distal left main disease
2. normal LV filling pressure and no aortic stenosis
[2024-07-13 17:51] LABS: Glucose - Point of Care 118 mg/dl (70-99)
[2024-07-13 17:52] LABS: Blood Urea Nitrogen - POC 14 mg/dl (3-120); Chloride - POC 107 mmol/L (96-111); Creatinine - POC 0.66 mg/dl (0.3-1.0); Glucose - POC 122 mg/dl (70-99); HCO3 - POC 28 mmol/L (21-28); Hematocrit - POC 32 % PCV (37-47); Hemodilution- POC Yes; Ionized Calcium - POC 1.36 mmol/L (1.15-1.33); Lactate - POC 1.35 mmol/L (0.36-0.75); O2 Saturation %Calculated-POC 98.9 % (94-98); PCO2 - POC 50 mmHg (35-48); PO2 - POC 136 mmHg (83-108); Potassium - POC 4.9 mmol/L (3.5-5.1); Sodium - POC 143 mmol/L (136-145); Specimen Type - POC Arterial; pH - POC 7.36 (7.35-7.45)
--- NOTE | 2024-07-13 17:55 | PTCARENOTE ---
ABG obtained CVNP at bedside. EPOC resulted. Per CVNP ok to extubate. Respiratory at bedside. Patient extubated and placed on 6L NC.
[2024-07-13 18:02] LABS: Hematocrit 32.4 % (37.0-47.0); Hemoglobin 10.9 g/dL (12.0-16.0); Platelet Count 251 10^3/uL (130-400)
--- NOTE | 2024-07-13 18:06 | RESPNOTE ---
Patient placed on cpap wean /5 at 5:18pm. Extubated to 6L NC at 5:55pm with nurse at bedside. Patient able to verbalize name and clear secretions. spo2 97-99%.
[2024-07-13] MEDS: ZOFRAN 4 MG IV (18:07)
[2024-07-13 18:30] LABS: B.E. - POC 2.6 mmol/L; Blood Urea Nitrogen - POC 13 mg/dl (3-120); Chloride - POC 107 mmol/L (96-111); Creatinine - POC 0.68 mg/dl (0.3-1.0); Glucose - POC 112 mg/dl (70-99); HCO3 - POC 29 mmol/L (21-28); Hematocrit - POC 32 % PCV (37-47); Hemodilution- POC Yes; Hemoglobin Calculated - POC 10.8; Ionized Calcium - POC 1.34 mmol/L (1.15-1.33); Lactate - POC 1.13 mmol/L (0.36-0.75); O2 Saturation %Calculated-POC 99.8 % (94-98); PCO2 - POC 49 mmHg (35-48); PO2 - POC 244 mmHg (83-108); Potassium - POC 4.6 mmol/L (3.5-5.1); Sodium - POC 143 mmol/L (136-145); Specimen Type - POC Arterial; pH - POC 7.38 (7.35-7.45)
[2024-07-13] MEDS: TORADOL 15 MG IV (18:30)
[2024-07-13] MEDS: LOW STRENGTH ASPIRIN 81 MG PO (19:01)
[2024-07-13 20:17] LABS: Glucose - Point of Care 91 mg/dl (70-99)
[2024-07-13 20:21] LABS: B.E. 0.1 mmol/L; HCO3 24.7 mmol/L (21-28); Ionized Calcium 1.28 mMOL/L (1.15-1.33); PCO2 39 mmHg (32-35); PO2 205 mmHg (83-108); pH 7.41 (7.35-7.45)
[2024-07-13] MEDS: DILAUDID 0.25 MG IV (20:34)
[2024-07-13] MEDS: ANCEF 5 IV (20:35)
--- NOTE | 2024-07-13 20:35 | PTCARENOTE ---
Patient stating pain /10. Dilaudid 0.25 given.
[2024-07-13] MEDS: SODIUM BICARBONATE 50 MEQ IV (21:01)
--- NOTE | 2024-07-13 21:10 | PTCARENOTE ---
Patient describes pain as 10/10. Per CT PA Ed, 0.5 more of Dilaudid ordered to be given. Patients BP labile. [address] PA Ed.
[2024-07-13] MEDS: SENOKOT-S PO (21:16)
[2024-07-13 22:11] LABS: Glucose - Point of Care 120 mg/dl (70-99)
--- NOTE | 2024-07-13 23:30 | PTCARENOTE ---
assumed care of patient @ 2300. received pt laying in bed, AOx3. NSR/SB on tele monitor. BPS 100s/50s Map 74 . CVP ~ 6. V wire set to VVI 40,9,5. doppler pedals, + radials. no edema noted. Lungs clear, diminished on 4L 02. taking shallow breaths.
CTx3, L plr and Med x2 to wall suction no air leak, tidaling or crepitus noted. BS hypoactive, tolerating sips and chips. Winter present draining clear yellow urine. Sternal insc LANCE CDI, surgical bra in place. R groin site CCNA, R leg edinson wrapped.
Received with levo at 1, insulin per protocol. pt resting in bed with call moya within reach .
[2024-07-13] MEDS: AMBIEN PO (23:36)
[2024-07-14] VITALS (36 sets, daily range): BP systolic 77–113; BP diastolic 16–88; PULSE 73; O2SAT 92–97; BMI 29.5
[2024-07-14] MEDS: NEURONTIN PO ×4 (00:01→23:37)
[2024-07-14 00:09] LABS: Glucose - Point of Care 98 mg/dl (70-99)
--- NOTE | 2024-07-14 04:00 | PTCARENOTE ---
labs drawn and sent. CA ordered and given. A line and Slic removed per orders from [facility]PA.
[2024-07-14 04:40] LABS: Blood Urea Nitrogen 13 mg/dl (7-17); Calcium 8.7 mg/dl (8.4-10.2); Carbon Dioxide 28 mmol/L (22-30); Chloride 107 mmol/L (98-107); Estimated Creatinine Clearance 65 ml/min; Glucose 113 mg/dl (70-99); Magnesium 2.2 mg/dl (1.6-2.3); Potassium 4.2 mmol/L (3.5-5.1); Sodium 138 mmol/L (135-145); eGFR > 60.00
[2024-07-14 04:52] LABS: Hematocrit 27.8 % (37.0-47.0); Hemoglobin 9.7 g/dL (12.0-16.0); Mean Corp Hgb Conc. 34.9 g/dL (33.0-37.0); Mean Corpuscular Hgb 30.2 pg (27.0-31.0); Mean Corpuscular Volume 86.6 fL (81.0-99.0); Platelet Count 177 10^3/uL (130-400); Red Blood Cell Count 3.21 10^6/uL (4.20-5.40); Red Cell Dist. Width 13.3 % (11.5-14.5); White Blood Cell Count 15.4 10^3/uL (4.8-10.8)
[2024-07-14] MEDS: CALCIUM GLUCONATE 100 IV (04:55)
[2024-07-14] MEDS: ANCEF 5 IV ×2 (04:55→11:54)
--- NOTE | 2024-07-14 05:01 | W.PN.CT ---
Today's Communication / Plan
-
Plan:
-No major issues overnight. Hemodynamically and neurologically stable
-Successfully extubated yesterday 07/13/24 @ 1755
-Weaned off Levophed gtt overnight, remains on Insulin gtt per protocol
-Will hold AM dose of BB given postop hypotension
-No swan, U/O mL since OR 1390 mL
-Current rhythm is NSR @ 80 bpm
-Monitor chest tube output: 2meds 75/135, L pl 90/160. CXR this AM looks clear with mild atelectasis and gastric air bubble/dilated bowel on my review. F/U official report
-Cont. current meds (ASA, Plavix, Crestor, Amiodarone, Lopressor if PM permits)
-D/C'd swan and a-line @ 0400
-D/C'd curry @ 0600
-Will transition to tele phase today when off insulin gtt per protocol
-Maintain cordis
-Maintain temporary PW (will pull in 1-2 days)
-Encourage use of IS
-Wean off of O2 as tolerated
-OOB into chair/Ambulate
Assessment / Plan
-
Assessment:
-S/P Standard sternotomy/ CABG x 4 (In situ CONNELLY to LAD, Ao to RSVG to OM 1, Ao to RSVG to RPL B sequential to RPDA)/Harvesting of internal mammary artery/Endoscopic vein harvesting of right lower extremity/Left atrial appendage exclusion [35 mm
clip], by Dr Perez, 07/13/24, pod#1
-Obstructive CAD involving 80% RCA/80% distal LM
-Abnormal CT Angiogram coronary calcium score
-Strong family hx of CAD
-LVEF 55-60% per intraop BERNARDO
-Mild TR
-HLD
-Class 1 obesity (BMI 30)
-GERD/Hiatal hernia
-Insomnia
-Depression/anxiety
-Vertigo
-S/p cardiac cath, 06/29/24
-S/p Cataract surgery, 09/2023
-S/P Appendectomy
-Acute postop blood loss/Anemia (stable without transfusion)
-Acute postop atelectasis
-Acute postop hypovolemia with subsequent hypervolemia
-Acute postop fever likely d/t atelectasis
Discussed patient care with: Cardiology, Nursing, Respiratory Therapy, Pharmacy and Care Team
Subjective
Procedure
S/P Standard sternotomy/ CABG x 4 (In situ CONNELLY to LAD, Ao to RSVG to OM 1, Ao to RSVG to RPL B sequential to RPDA)/Harvesting of internal mammary artery/Endoscopic vein harvesting of right lower extremity/Left atrial appendage exclusion [35 mm
clip], by Dr Perez, 07/13/24
-
Date of Service: July 14, 2024
Pt c/o mild incisional pain, otherwise feels well
Objective Data
-
Lab Results
07/14/24 02:00
07/14/24 02:00
PT 16.8 Sec (11.4-14.6) H 07/13/24 13:13
INR 1.34 07/13/24 13:13
APTT 26.8 Sec (23.4-35.0) 07/13/24 13:13
Vital Signs
Vital Signs
Temp Pulse Resp BP Pulse Ox
99.9 F 68 16 94/52 99
07/14/24 00:00 07/13/24 23:00 07/14/24 00:00 07/13/24 23:00 07/14/24 00:00
CT Intake/Output/Weight
07/13/24 07/13/24 07/14/24
06:59 18:59 06:59
Intake Total 887.0 / 1803.5 916.5 / 1803.5
Output Total 955 / 1365 410 / 1365
Balance -68.0 / 438.5 506.5 / 438.5
SaO2: 99 (2L)
Physical Exam
-
General: Awake, Oriented and AOx3
Cardiovascular: Regular rate & rhythm, No Murmurs, No Rub and No Gallop
Respiratory: Decreased Breath Sounds (at bases, otherwise clear)
Sternum: Stable
Incision: Clean, Dry, Intact and Dressing Intact
Extremities: Other (+trace edema)
Data Reviewed
-
Lab Results: Results Reviewed
Medications: Active Meds Reviewed
Chest X-Ray: Report Reviewed and Image Reviewed
ECG: Report Reviewed and Image Reviewed
[2024-07-14] MEDS: TYLENOL 1000 MG PO ×4 (05:55→20:07)
[2024-07-14] MEDS: ZOFRAN 4 MG IV (06:24)
[2024-07-14] MEDS: TORADOL 15 MG IV ×2 (06:59→16:14)
--- NOTE | 2024-07-14 07:48 | W.PN.INTV ---
Today's Communication / Plan
Recommendations
- Increase activity as tolerated, encourage bedside incentive spirometry
-If patient transferred out of CVICU, medication coordinator service will sign off, please call as needed.
Assessment
-
Patient is a 78-year-old female with a history of chest discomfort and elevated calcium score who had a CT angiogram which was abnormal which was followed by cardiac catheterization demonstrating severe coronary artery disease. Patient was
subsequently referred for coronary artery bypass graft. Patient today had CABG performed and was transferred to CVICU postsurgically. Warehouse Assembly Worker consult was requested for further management.
S/p coronary artery bypass graft x 4 with left atrial appendage exclusion, endoscopic vein harvesting of right lower extremity, temporary ventricular pacing wire placement POD # 1
Patient is hemodynamically stable, weaned off all pressors
Cardiac cath result reviewed
PA catheter removed, A-line removed, right IJ cordis in place
Management of chest tubes per primary service
Patient extubated on 07/13, currently saturating in high 90s on room air.
ABG(s) reviewed, 7.4
CXR reviewed, mild bibasilar atelectasis otherwise unremarkable
No prior history of pulmonary diseas, never smokede
Can add nebulizers if needed
Aspiration precautions
Encouraged incentive spirometry, OOB/ambulation/early mobility
Advance diet as tolerated following extubation
GI prophylaxis if indicated for mechanical ventilation >48 hours
Monitor critical I/O's
Winter/chest tube output
Hb/platelets postoperatively stable
Trend CBC for now
Can transfuse if indicated for Hb <7, plt <50 in surgical patients
DVT prophylaxis including SCDs
Currently on insulin infusion at 1.3 units/h
Transition to SQ/off as indicated per team
We will follow
Critical Care time 25 mins -- The patient is admitted for acute critical illness for the treatment of vital organ failure and/or prevention of further life-threatening conditions. Total care includes time spent in review of history, physical exam,
medications, hemodynamic/ventilator parameters, laboratory data, imaging and discussion with house staff, pharmacy, respiratory therapy, casting repairer, and nursing.
Data:
Cardiac cath 06/2024: 1. severe coronary artery disease as described with high grade calcific distal left main disease
2. normal LV filling pressure and no aortic stenosis
Subjective Dataa
Subjective Data
Date of Service:
Date of Service: July 14, 2024
Subjective:
Patient comfortably sitting in bed in no acute distress.
Review of Systems
Genitourinary: Other (Complains of some pain around surgical site, well-controlled, all 14 systems reviewed and negative except as stated above in the history of present illness.)
Objective Data
Data Reviewed
Vital Signs / I&O / Oxygen:
Vital Signs
Temp Pulse Resp BP Pulse Ox
99.2 F 74 16 101/49 99
07/14/24 06:06 07/14/24 07:25 07/14/24 06:06 07/14/24 07:00 07/14/24 06:06
Intake and Output
07/13/24 07/14/24 07/15/24
06:59 06:59 06:59
Intake Total 1910.8 / 1922.1 11.3 / 11.3
Output Total 1685 / 1695 10 / 10
Balance 225.8 / 227.1 1.3 / 1.3
SaO2 [CPAP] 100
SaO2 [SIMV] 100
SaO2 99
Nasal Cannula flow liters per 2
minute
Physical Exam
General: Comfortable
HEENT: Normocephalic
Cardiovascular: S1-S2
Respiratory: Clear and Non-Labored Respirations
GI: Soft and Non Distended
Neurology: Awake and AO x 3
Skin: Warm
Labs/Micro/Reports
Lab Data
07/14/24 02:00
07/14/24 02:00
Laboratory Results
07/13/24 07/13/24
13:13 20:15
PT 16.8 H
INR 1.34
APTT 26.8
pH 7.43 7.41
pCO2 35 39 H
pO2 134 H 205 H
HCO3 23.2 24.7
O2 Delivery Level vent
Microbiology
07/12/24 08:41 Nose MRSA Screen - Final
No Methicillin Resistant Staphylococcus aureus isolated.
07/12/24 08:33 Urine Urine Culture - Final
No Significant Growth
--- NOTE | 2024-07-14 08:58 | PTCARENOTE ---
Patient received from night club manager resting oob in chair, AAO X 3, c/o sternal pain, medicated for such (see MAR). NSR via cm, SaO2 @ 94% on RA. RIJ Cordis w/kvo infusing. Epicardial V-wire to pulse generator set to back up rate 40bpm, no spikes
noted. Mediastinal chest tubes x 2 to one pleurevac, L pleural chest tube to separate chamber, both to -20cm suction w/no air leak appreciated. All procedural sites stable. Insulin infusing peripherally, titrating per glycemic protocol. Patient
updated to plan of care for the day, in agreement. See work list for full assessment and interventions performed.
[2024-07-14] MEDS: PLAVIX 75 MG PO (09:27)
[2024-07-14] MEDS: PROTONIX 40 MG PO (09:27)
[2024-07-14] MEDS: ZOLOFT 150 MG PO (09:27)
[2024-07-14] MEDS: BACTROBAN 2% OINTMENT 1 APPLIC NASAL ×2 (09:28→20:08)
[2024-07-14] MEDS: MAGNESIUM OXIDE 500 MG PO ×2 (09:28→20:07)
[2024-07-14] MEDS: LOW STRENGTH ASPIRIN 81 MG PO (09:28)
[2024-07-14] MEDS: CRESTOR 20 MG PO (09:28)
[2024-07-14] MEDS: SENOKOT-S 1 TABLET PO ×2 (09:29→20:07)
[2024-07-14] MEDS: LIDOCAINE 4% PATCH 1 PATCH TOPICAL (09:34)
[2024-07-14] MEDS: LR 500 IV ×2 (09:35→14:30)
[2024-07-14 09:45] LABS: Glucose - Point of Care 114 mg/dl (70-99)
[2024-07-14 09:45] LABS: Glucose - Point of Care 90 mg/dl (70-99)
--- NOTE | 2024-07-14 09:58 | W.PN.CD ---
Today's Communication / Plan
-
encouraged ICS
continue POD #1 typical care
Impression / Plan
-
I/P: 78F with an elevated coronary calcium score who endorsed chest discomfort and had a CT angiogram which was abnormal and prompted cardiac catheterization. Cardiac catheterization demonstrated severe CAD with high-grade calcific distal left main
disease and she presents for CABG
Outpatient cloth mender: Dr. Alexander Franklin
CAD s/p CABG x 4 (In situ CONNELLY to LAD, Ao to RSVG to OM 1, Ao to RSVG to RPL B sequential to RPDA) & TALIB clip by Dr. Perez on 07/13/2024
-Pre-LVEF 50%, post LVEF 60% without RWMA
-Responded well to IV fluids post op
-Postoperative EKG sinus bradycardia with first-degree AV block, stable
-Follow telemetry
-Postoperative management per CT surgery
-eventual bb when bp allows
- statin
-asa/plavix per CT surgery
Dyslipidemia, on rosuvastatin 20 mg, goal LDL <55
SUBJECTIVE:
she is tired, has some incisional pain.
Physical Exam
Vital Signs/Labs
Vital Signs
Temp Pulse Resp BP Pulse Ox
99.1 F 73 16 77/44 94
07/14/24 07:57 07/14/24 09:06 07/14/24 07:57 07/14/24 09:06 07/14/24 08:55
07/13/24 07/14/24 07/15/24
06:59 06:59 06:59
Actual Weight 65.1 kg 66.2 kg
07/14/24 02:00
07/14/24 02:00
PT 16.8 Sec (11.4-14.6) H 07/13/24 13:13
INR 1.34 07/13/24 13:13
APTT 26.8 Sec (23.4-35.0) 07/13/24 13:13
Magnesium 2.2 mg/dl (1.6-2.3) 07/14/24 02:00
Physical Exam
Constitutional: No acute distress
Cardiovascular: Rhythm & rate is regular, Pedal edema is absent, Systolic murmur absent and Diastolic murmur absent
Respiratory: Crackles Present (bibasilar) and Other (poor effort)
Neuro/Psych: AO x 3
Data Reviewed
-
Date of Service: July 14, 2024
EKG: Other (sinus on tele)
[2024-07-14] MEDS: PACERONE 200 MG PO ×3 (10:03→20:07)
--- NOTE | 2024-07-14 10:20 | W.PN.ANS.POP ---
Anesthesia Post Operative
- Anesthesia Post Op Note
Vital Signs Stable-See Nursing Note: Yes
Airway Patent: Yes
Adequate Pain Control: Yes
Change in Mental Status: No
Current Postoperative Nausea & Vomiting: No
Anesthesia Complications: No
General Anesthetic Recall: No
Unplanned Admission: No
Post Op Hydration Adequate: Yes
[2024-07-14] MEDS: ULTRAM 50 MG PO (10:38)
--- NOTE | 2024-07-14 11:25 | PTCARENOTE ---
Left pleural chest tube d/c'd as ordered. Ventricular temp wire insulated. Patient tolerated well, resting comfortably.
[2024-07-14] MEDS: NSS IV (11:30)
[2024-07-14 12:00] LABS: Glucose - Point of Care 103 mg/dl (70-99)
[2024-07-14 12:00] LABS: Glucose - Point of Care 95 mg/dl (70-99)
[2024-07-14 12:00] LABS: Glucose - Point of Care 101 mg/dl (70-99)
[2024-07-14 12:04] LABS: Glucose - Point of Care 123 mg/dl (70-99)
--- NOTE | 2024-07-14 12:10 | PTCARENOTE ---
VS obtained, assessment stable. Assisted back oob to chair for lunch. Visitor at bedside. Dr. Perez and team to bedside for rounds, updated.
[2024-07-14] MEDS: FERRLECIT 110 MG IV (14:03)
[2024-07-14 14:05] LABS: Glucose - Point of Care 93 mg/dl (70-99)
--- NOTE | 2024-07-14 16:07 | PTCARENOTE ---
VS obtained, assessment unchanged. Patient resting comfortably w/visitor bedside. Perusing menu.
--- NOTE | 2024-07-14 21:52 | PTCARENOTE ---
assumed care of patient @ 1900. recieved pt sitting in chair, Aox3. VSS on RA. NSR on tele, doppler pulses, - edema. V wire insulated. Lungs clear, diminished on room air. [address] draining serosang drainage. BS hypoactive. Bladder scanned for 230
mls, states no urge to void at this time. will follow. Sternum LANCE with glue, surgical bra in place. R groin and R leg sites KIDS ACTIVITIES COACH. R IJ cordis, R PIV both patent. pt resting comfortably with call moya within reach .
[2024-07-14] MEDS: AMBIEN 5 MG PO (22:21)
[2024-07-15] VITALS (16 sets, daily range): BP systolic 80–123; BP diastolic 43–69; PULSE 92; O2SAT 96–97; BMI 30.2
--- NOTE | 2024-07-15 00:15 | PTCARENOTE ---
pt resting comfortably, no change in assessment .
[2024-07-15 02:45] LABS: Hematocrit 25.5 % (37.0-47.0); Hemoglobin 8.9 g/dL (12.0-16.0); Mean Corp Hgb Conc. 34.9 g/dL (33.0-37.0); Mean Corpuscular Hgb 30.4 pg (27.0-31.0); Mean Platelet Volume 9.9 fL (7.4-10.4); Platelet Count 207 10^3/uL (130-400); Red Blood Cell Count 2.93 10^6/uL (4.20-5.40); Red Cell Dist. Width 13.6 % (11.5-14.5); White Blood Cell Count 17.8 10^3/uL (4.8-10.8)
[2024-07-15 03:12] LABS: Blood Urea Nitrogen 13 mg/dl (7-17); Carbon Dioxide 28 mmol/L (22-30); Chloride 97 mmol/L (98-107); Estimated Creatinine Clearance 66 ml/min; Glucose 122 mg/dl (70-99); Magnesium 2.1 mg/dl (1.6-2.3); Potassium 4.4 mmol/L (3.5-5.1); Sodium 130 mmol/L (135-145); eGFR > 60.00
--- NOTE | 2024-07-15 04:00 | PTCARENOTE ---
labs drawn and sent , pt resting comfortably no change in assessment .
[2024-07-15] MEDS: ULTRAM 50 MG PO ×2 (05:02→10:32)
[2024-07-15] MEDS: TYLENOL 1000 MG PO ×3 (05:02→21:09)
--- NOTE | 2024-07-15 06:12 | W.PN.CT ---
Today's Communication / Plan
-
-pod #2
-no significant issues overnight
-holding BB d/t low BP
-will start 25% Albumin x3, consider diuresis afterwards
-CT output: 2 meds 90/240 in 12/24 hrs
-current meds (ASA, Plavix, Crestor, Amio, Ambien, Protonix)
-encourage IS, OOB
Assessment / Plan
-
Assessment:
-S/P Standard sternotomy/ CABG x 4 (In situ CONNELLY to LAD, Ao to RSVG to OM 1, Ao to RSVG to RPL B sequential to RPDA)/Harvesting of internal mammary artery/Endoscopic vein harvesting of right lower extremity/Left atrial appendage exclusion [35 mm
clip], by Dr Perez, 07/13/24, pod#2
-Obstructive CAD involving 80% RCA/80% distal LM
-Abnormal CT Angiogram coronary calcium score
-Strong family hx of CAD
-LVEF 55-60% per intraop BERNARDO
-Mild TR
-HLD
-Class 1 obesity (BMI 30)
-GERD/Hiatal hernia
-Insomnia
-Depression/anxiety
-Vertigo
-S/p cardiac cath, 06/29/24
-S/p Cataract surgery, 09/2023
-S/P Appendectomy
-Acute postop blood loss/Anemia (stable without transfusion)
-Acute postop atelectasis
-Acute postop hypovolemia with subsequent hypervolemia
-Acute postop fever likely d/t atelectasis
-Acute postop hyponatremia
Discussed patient care with: Nursing and Care Team
Subjective
Procedure
S/P Standard sternotomy/ CABG x 4 (In situ CONNELLY to LAD, Ao to RSVG to OM 1, Ao to RSVG to RPL B sequential to RPDA)/Harvesting of internal mammary artery/Endoscopic vein harvesting of right lower extremity/Left atrial appendage exclusion [35 mm
clip], by Dr Perez, 07/13/24
-
Date of Service: July 15, 2024
Objective Data
-
Lab Results
07/15/24 02:28
07/15/24 02:28
PT 16.8 Sec (11.4-14.6) H 07/13/24 13:13
INR 1.34 07/13/24 13:13
APTT 26.8 Sec (23.4-35.0) 07/13/24 13:13
Vital Signs
Vital Signs
Temp Pulse Resp BP Pulse Ox
98.9 F 74 16 101/43 92
07/15/24 00:18 07/15/24 03:40 07/15/24 03:41 07/15/24 03:40 07/15/24 03:41
CT Intake/Output/Weight
07/14/24 07/14/24 07/15/24
06:59 18:59 06:59
Intake Total 1023.8 / 1922.1 1621.1 / 1631.1 10 / 1631.1
Output Total 730 / 1695 255 / 695 440 / 695
Balance 293.8 / 227.1 1366.1 / 936.1 -430 / 936.1
SaO2: 92
Physical Exam
-
General: Awake and AOx3
Cardiovascular: Regular rate & rhythm (+ JVD), No Murmurs and No Rub
Respiratory: Decreased Breath Sounds
Sternum: Stable
Incision: Clean, Dry and Intact
Extremities: Edema +1
Abdomen: soft, nontender, nondistended, + bowel sounds
Data Reviewed
-
Lab Results: Results Reviewed
Medications: Active Meds Reviewed
Chest X-Ray: Report Reviewed and Image Reviewed
ECG: Report Reviewed and Image Reviewed
[2024-07-15] MEDS: PLAVIX 75 MG PO (08:07)
[2024-07-15] MEDS: MAGNESIUM OXIDE 500 MG PO ×2 (08:07→21:09)
[2024-07-15] MEDS: PROTONIX 40 MG PO (08:07)
[2024-07-15] MEDS: SENOKOT-S 1 TABLET PO ×2 (08:08→21:09)
[2024-07-15] MEDS: LOW STRENGTH ASPIRIN 81 MG PO (08:08)
[2024-07-15] MEDS: ZOLOFT 150 MG PO (08:08)
[2024-07-15] MEDS: CRESTOR 20 MG PO (08:08)
[2024-07-15] MEDS: NEURONTIN PO ×5 (08:08→21:10)
[2024-07-15] MEDS: PACERONE 200 MG PO ×3 (08:09→21:09)
[2024-07-15] MEDS: LIDOCAINE 4% PATCH 1 PATCH TOPICAL (08:09)
[2024-07-15] MEDS: FLEXBUMIN 50 IV ×3 (08:10→22:25)
--- NOTE | 2024-07-15 08:10 | W.PN.CD ---
Today's Communication / Plan
-
Monitor response to furosemide.
Encourage incentive spirometry.
Ambulate.
Impression / Plan
-
Impression/Plan: 78F with an elevated coronary calcium score who endorsed chest discomfort and had a CT angiogram which was abnormal and prompted cardiac catheterization. Cardiac catheterization demonstrated severe CAD with high-grade calcific
distal left main disease. She is admitted for elective CABG.
Outpatient government affairs researcher: Dr. Alexander Franklin
#CAD
-Relatively new diagnosis.
-S/P CABG x 4 (In situ CONNELLY to LAD, SVG to OM 1, sequential SVG to RPLB to RPDA) & #[address] Perez, 07/13/2024.
-Pre-LVEF 50%, post LVEF 60% without RWMA.
-Routine post operative management.
-High dose, high potency statin.
-Aspirin/clopidogrel per CT surgery.
-Encourage incentive spirometry.
-Ambulate.
-Pain/chest tube management per CT surgery.
-Monitor response to furosemide.
#Dyslipidemia
-Chronic.
-Continue rosuvastatin 20 mg, goal LDL <55.
Outpatient government affairs researcher: Dr. Alexander Franklin
Subjective/Interval History:
Febrile to 38.0 on 07/14/2024, afebrile since.
Weight is up 1.7 kg from yesterday.
Interestingly, she received both albumin and furosemide this morning.
SaO2 = 91% on RA.
DATA:
Cardiac Catheterization, 06/30/2024:
CONCLUSIONS
1. Severe coronary artery disease as described with high grade calcific distal left main disease.
2. Normal LV filling pressure and no aortic stenosis.
Intraoperative BERNARDO, 07/13/2024:
CONCLUSIONS
Normal left ventricular size and systolic function, stage I diastolic
dysfunction, no regional wall motion abnormalities seen.
Normal right ventricular size and function.
The aorta has atheroma less than 5 mm and mild calcifications.
Mild left atrial enlargement.
Trivial to mild MR and TR.
POST OPERATIVE FINDINGS
Status post CABG x 4, the left ventricle is vigorously brandy, EF 55 to
60%, patient is in sinus bradycardia. No regional wall motion abnormalities
seen.
Status post left atrial appendage exclusion, the clip is well-seated, no flow
seen through the left atrial appendage remnant.
Normal right ventricular size and function.
Mild TR. Trivial to mild MR. No aortic valve abnormalities.
Physical Exam
Vital Signs/Labs
Vital Signs
Temp Pulse Resp BP Pulse Ox
37.4 C 71 18 101/43 91
07/15/24 08:06 07/15/24 07:10 07/15/24 08:06 07/15/24 03:40 07/15/24 08:06
07/13/24 07/14/24 07/15/24
11:59 11:59 11:59
Actual Weight 66.2 kg 67.8 kg
07/15/24 02:28
07/15/24 02:28
PT 16.8 Sec (11.4-14.6) H 07/13/24 13:13
INR 1.34 07/13/24 13:13
APTT 26.8 Sec (23.4-35.0) 07/13/24 13:13
Magnesium 2.1 mg/dl (1.6-2.3) 07/15/24 02:28
Physical Exam
Constitutional: No acute distress and Comfortable
EENT: Anicteric and Moist mucous membranes
Cardiovascular: Rhythm & rate is regular, Pedal edema is absent, JVD pressure is normal, S1S2 is normal and Murmur/rub/gallop absent
Respiratory: Respiratory effort normal, Lungs clear to auscul. and Other (Decreased, tubular breath sounds at the bilateral bases.)
GI: Soft, Distention absent, Flat, Non tender and Normal bowel sounds
Neuro/Psych: AO x 3
Data Reviewed
-
Date of Service: July 15, 2024
Medical Decision Making: Reviewed Test Results, Independent Historian Assessment and Test Interpretation
EKG: Tracing Personally Visualized and interpreted and Report Reviewed by me
Echo: Report Reviewed by me
X-Ray/CT/US/MRI/NUC/PET: Image Personally Visualized and interpreted and Report Reviewed by me
Medical Tests (PFT, Pathology etc): Report Reviewed by me
Labs: Labs Reviewed by me
Old Records: Reviewed
[2024-07-15] MEDS: LASIX 40 MG IV (08:11)
[2024-07-15] MEDS: BACTROBAN 2% OINTMENT 1 APPLIC NASAL ×2 (08:12→21:08)
[2024-07-15] MEDS: TORADOL 15 MG IV (08:28)
--- NOTE | 2024-07-15 09:13 | PTCARENOTE ---
Rec'd pt this shift awake and alert sitting in chair. Pt NSR on monitor. RA. Pulse ox 91%. Pt encouraged to cough and deep breathe and to use IS. Am meds given. Pt ambulating to bathroom with one person assist. See worklist for VS/I and O and
assessments.
--- NOTE | 2024-07-15 11:40 | PTCARENOTE ---
epicardial wires pulled by KENTON Landis. VS done as per protocol and bed rest maintained for one hour. Mediastinal chest tubes d/c'd after hour bedrest.
[2024-07-15] MEDS: NSS 500 IV (12:35)
--- NOTE | 2024-07-15 14:13 | CM ---
Addendum entered by RADHA Powell 07/15/24 16:02:
[facility] able to accept for home-care.
Original Note:
CM following for DC planning needs.
Met w/ patient at bedside.
Patient is POD#2, feels well.
Role of CM reviewed.
DC plan reviewed. Pt. resides alone but states that she has friends that can check on her. She would like VN; CT RN unable to visit due to geographical location of patient. Referral made to [facility] per patient's choice.
DC plan is for home w/ VN.
Will await response from [facility].
[2024-07-15] MEDS: FERRLECIT 110 MG IV (14:32)
--- NOTE | 2024-07-15 15:01 | PTCARENOTE ---
Pt ambulating in room and in hallway, tolerated well.
--- NOTE | 2024-07-15 20:00 | PTCARENOTE ---
Assumed care of the patient at 1900. Patient OOB to chair, AOx3, assisted back to bed without incident. SR on tele rate 60-70's, heart tones audible, no edema noted, DP pulses present with doppler. On RA, SpO2 97%, lungs diminished at the bases,
occasional nonproductive cough. Abdomen SNT, patient endorses poor appetite, no BM since BOARD CERTIFIED FAMILY PHYSICIAN, normoactive BS, passing flatus. Voiding in the toilet. OOB with assist of 1. MS Dermabond CDI, tender, ecchymotic, surgical bra maintained. R groin
puncture site CDI LANCE; RSVG site CDI CONSULTING SOLUTION DIRECTOR, ecchymotic. Skin otherwise intact. RIJ Cordis with KVO, PIVx1. Patient updated on POC, in agreement, call moya within reach.
[2024-07-15] MEDS: AMBIEN 5 MG PO (22:25)
[2024-07-16] VITALS (13 sets, daily range): BP systolic 88–119; BP diastolic 49–95; PULSE 75; O2SAT 94–95; BMI 29.4
--- NOTE | 2024-07-16 | PTCARENOTE ---
Patient sleeping between care, placed on 2LNC for desatting to 88% while asleep, assessment of needs ongoing, call moya within reach.
--- NOTE | 2024-07-16 00:35 | PTCARENOTE ---
Patient sleeping between care, no acute changes, assessment of needs ongoing, call moya within reach.
[2024-07-16 05:00] LABS: Hematocrit 22.2 % (37.0-47.0); Hemoglobin 7.3 g/dL (12.0-16.0); Mean Corp Hgb Conc. 32.9 g/dL (33.0-37.0); Mean Corpuscular Hgb 29.4 pg (27.0-31.0); Mean Corpuscular Volume 89.5 fL (81.0-99.0); Mean Platelet Volume 10.2 fL (7.4-10.4); Platelet Count 169 10^3/uL (130-400); Red Blood Cell Count 2.48 10^6/uL (4.20-5.40); Red Cell Dist. Width 13.6 % (11.5-14.5); White Blood Cell Count 10.6 10^3/uL (4.8-10.8)
--- NOTE | 2024-07-16 05:17 | W.PN.CT ---
Today's Communication / Plan
-
-pod #3
-no issues overnight
-diuresed with 40 iv Lasix on 07/15 (UO 1360/2360 in 12/24 hrs)-continue diuresis
-hg 7.3 today (8.9 on 07/15 and 9.7 on 07/14)- monitor
-got 25% Albumin on 07/15
-holding BB d/t low BP
-BMP pending
-weaned off O2
-current meds (ASA, Plavix, Crestor, Amio, Ambien, Protonix)
-encourage IS, OOB
Assessment / Plan
-
Assessment:
-S/P Standard sternotomy/ CABG x 4 (In situ CONNELLY to LAD, Ao to RSVG to OM 1, Ao to RSVG to RPL B sequential to RPDA)/Harvesting of internal mammary artery/Endoscopic vein harvesting of right lower extremity/Left atrial appendage exclusion [35 mm
clip], by Dr Perez, 07/13/24, pod#3
-Obstructive CAD involving 80% RCA/80% distal LM
-Abnormal CT Angiogram coronary calcium score
-Strong family hx of CAD
-LVEF 55-60% per intraop BERNARDO
-Mild TR
-HLD
-Class 1 obesity (BMI 30)
-GERD/Hiatal hernia
-Insomnia
-Depression/anxiety
-Vertigo
-S/p cardiac cath, 06/29/24
-S/p Cataract surgery, 09/2023
-S/P Appendectomy
-Acute postop blood loss/Anemia (stable without transfusion)
-Acute postop atelectasis
-Acute postop hypovolemia with subsequent hypervolemia
-Acute postop fever likely d/t atelectasis
-Acute postop hyponatremia
Discussed patient care with: Nursing and Care Team
Subjective
Procedure
S/P Standard sternotomy/ CABG x 4 (In situ CONNELLY to LAD, Ao to RSVG to OM 1, Ao to RSVG to RPL B sequential to RPDA)/Harvesting of internal mammary artery/Endoscopic vein harvesting of right lower extremity/Left atrial appendage exclusion [35 mm
clip], by Dr Perez, 07/13/24
-
Date of Service: July 16, 2024
Objective Data
-
Lab Results
07/16/24 04:40
PT 16.8 Sec (11.4-14.6) H 07/13/24 13:13
INR 1.34 07/13/24 13:13
APTT 26.8 Sec (23.4-35.0) 07/13/24 13:13
Vital Signs
Vital Signs
Temp Pulse Resp BP Pulse Ox
97.3 F 74 16 104/56 98
07/16/24 04:42 07/16/24 00:16 07/16/24 04:42 07/16/24 00:16 07/15/24 20:28
CT Intake/Output/Weight
07/15/24 07/15/24 07/16/24
06:59 18:59 06:59
Intake Total 10 / 1631.1 1270 / 1550 280 / 1550
Output Total 440 / 695 1000 / 2360 1360 / 2360
Balance -430 / 936.1 270 / -810 -1080 / -810
SaO2: 98
Physical Exam
-
General: Awake and AOx3
Cardiovascular: Regular rate & rhythm, No Murmurs and No Rub
Respiratory: Decreased Breath Sounds
Sternum: Stable
Incision: Clean, Dry and Intact
Extremities: Other (trace edema b/l)
Abdomen: soft, nontender, nondistended, + BS
Data Reviewed
-
Lab Results: Results Reviewed
Medications: Active Meds Reviewed
Chest X-Ray: Report Reviewed and Image Reviewed
ECG: Report Reviewed and Image Reviewed
[2024-07-16 05:25] LABS: Blood Urea Nitrogen 11 mg/dl (7-17); Calcium 8.9 mg/dl (8.4-10.2); Carbon Dioxide 33 mmol/L (22-30); Chloride 100 mmol/L (98-107); Estimated Creatinine Clearance 56 ml/min; Glucose 100 mg/dl (70-99); Magnesium 2.6 mg/dl (1.6-2.3); Potassium 3.8 mmol/L (3.5-5.1); Sodium 136 mmol/L (135-145); eGFR > 60.00
--- NOTE | 2024-07-16 05:59 | PTCARENOTE ---
Patient pressures elevated, see flow sheet. Per CVPA, give scheduled morning BP meds Lisinopril and Coreg early, see MAR. Patient endorses high anxiety regarding possible discharge today. CVPA aware
[2024-07-16] MEDS: TYLENOL 1000 MG PO ×3 (06:34→22:45)
--- NOTE | 2024-07-16 07:50 | W.PN.CD ---
Today's Communication / Plan
-
Continue routine post operative management.
Repeat CBC this morning.
Monitor for outward signs of bleeding.
Impression / Plan
-
Impression/Plan: 78F with an elevated coronary calcium score who endorsed chest discomfort and had a CT angiogram which was abnormal and prompted cardiac catheterization. Cardiac catheterization demonstrated severe CAD with high-grade calcific
distal left main disease. She is admitted for elective CABG.
#CAD
-Relatively new diagnosis.
-S/P CABG x 4 (In situ CONNELLY to LAD, SVG to OM 1, sequential SVG to RPLB to RPDA) & #[address] Perez, 07/13/2024.
-Pre-LVEF 50%, post LVEF 60% without RWMA.
-Routine post operative management.
-High dose, high potency statin.
-Aspirin/clopidogrel per CT surgery.
-Encourage incentive spirometry.
-Ambulate.
-Pain/chest tube management per CT surgery.
#Dyslipidemia
-Chronic.
-Continue rosuvastatin 20 mg, goal LDL <55.
#Anemia
-Acute, post operative.
-Hbg was relatively stable, but fell to 7.3 (from 8.9 yesterday). All cell lines fell, making me suspect lab error.
-Repeat CBC this morning.
Outpatient sand cutter: Dr. Alexander Franklin
Subjective/Interval History:
Afebrile.
Furosemide given yesterday - weight fell 1.9 kg.
Hbg fell to 7.3 (all cell lines fell).
BP mildly hypotensive overnight, but not requiring any support.
DATA:
Cardiac Catheterization, 06/30/2024:
CONCLUSIONS
1. Severe coronary artery disease as described with high grade calcific distal left main disease.
2. Normal LV filling pressure and no aortic stenosis.
Intraoperative BERNARDO, 07/13/2024:
CONCLUSIONS
Normal left ventricular size and systolic function, stage I diastolic
dysfunction, no regional wall motion abnormalities seen.
Normal right ventricular size and function.
The aorta has atheroma less than 5 mm and mild calcifications.
Mild left atrial enlargement.
Trivial to mild MR and TR.
POST OPERATIVE FINDINGS
Status post CABG x 4, the left ventricle is vigorously brandy, EF 55 to
60%, patient is in sinus bradycardia. No regional wall motion abnormalities
seen.
Status post left atrial appendage exclusion, the clip is well-seated, no flow
seen through the left atrial appendage remnant.
Normal right ventricular size and function.
Mild TR. Trivial to mild MR. No aortic valve abnormalities.
Physical Exam
Vital Signs/Labs
Vital Signs
Temp Pulse Resp BP Pulse Ox
36.3 C 61 16 111/95 98
07/16/24 04:42 07/16/24 07:00 07/16/24 04:42 07/16/24 04:42 07/16/24 05:21
07/14/24 07/15/24 07/16/24
11:59 11:59 11:59
Actual Weight 66.2 kg 67.8 kg 65.9 kg
07/16/24 04:40
07/16/24 04:40
PT 16.8 Sec (11.4-14.6) H 07/13/24 13:13
INR 1.34 07/13/24 13:13
APTT 26.8 Sec (23.4-35.0) 07/13/24 13:13
Magnesium 2.6 mg/dl (1.6-2.3) H 07/16/24 04:40
Physical Exam
Constitutional: No acute distress and Comfortable
EENT: Anicteric and Moist mucous membranes
Cardiovascular: Rhythm & rate is regular, JVD pressure is normal, Pedal edema present, S1S2 is normal and Murmur/rub/gallop absent
Respiratory: Respiratory effort normal, Wheeze Absent and Other (Decreased at bases.)
GI: Soft, Distention absent, Flat, Non tender and Normal bowel sounds
Neuro/Psych: AO x 3
Data Reviewed
-
Date of Service: July 16, 2024
Medical Decision Making: Reviewed Test Results, Independent Historian Assessment, Test Interpretation and Review of Case with other Provider
EKG: Tracing Personally Visualized and interpreted and Report Reviewed by me
Echo: Report Reviewed by me
X-Ray/CT/US/MRI/NUC/PET: Image Personally Visualized and interpreted and Report Reviewed by me
Medical Tests (PFT, Pathology etc): Report Reviewed by me
Labs: Labs Reviewed by me
Old Records: Reviewed
--- NOTE | 2024-07-16 08:00 | PTCARENOTE ---
pt received from previous RN, oriented, in bed. SR on the monitor, HR 60s. SBP 110s. Doppler pedal pulses, palpable radial pulses. pt on RA, 96% POX. lungs crackles in LLL. IS encouraged. SWEATBAND PERFORATOR cough. pt abdomen s/n, denies n/v. +BS, +flatus per pt.
poor appetite. voids. ambulates to bathroom w/ stand by assist. sternal incision LANCE, approximated, ecchymotic. surgical bra in place. chest tube site c/d/i. R groin puncture LANCE. RLE incision IDENTIFICATION OFFICER. RIJ cordis maintained. PIV. see worklist for VS,
I&O, and assessment.
[2024-07-16] MEDS: PACERONE 200 MG PO ×3 (08:29→22:45)
[2024-07-16] MEDS: MAGNESIUM OXIDE 500 MG PO (08:29)
[2024-07-16] MEDS: LOW STRENGTH ASPIRIN 81 MG PO (08:29)
[2024-07-16] MEDS: ZOLOFT 150 MG PO (08:29)
[2024-07-16] MEDS: SENOKOT-S 1 TABLET PO (08:29)
[2024-07-16] MEDS: PROTONIX 40 MG PO (08:29)
[2024-07-16] MEDS: LIDOCAINE 4% PATCH 1 PATCH TOPICAL (08:29)
[2024-07-16] MEDS: PLAVIX 75 MG PO (08:29)
[2024-07-16] MEDS: CRESTOR 20 MG PO (08:30)
[2024-07-16] MEDS: BACTROBAN 2% OINTMENT 1 APPLIC NASAL ×2 (08:30→20:45)
[2024-07-16] MEDS: NEURONTIN PO ×3 (08:33→22:40)
[2024-07-16 12:09] LABS: Hematocrit 26.2 % (37.0-47.0); Hemoglobin 8.8 g/dL (12.0-16.0); Mean Corp Hgb Conc. 33.6 g/dL (33.0-37.0); Mean Corpuscular Hgb 29.8 pg (27.0-31.0); Mean Corpuscular Volume 88.8 fL (81.0-99.0); Mean Platelet Volume 10.2 fL (7.4-10.4); Platelet Count 228 10^3/uL (130-400); Red Blood Cell Count 2.95 10^6/uL (4.20-5.40); Red Cell Dist. Width 13.7 % (11.5-14.5); White Blood Cell Count 12.9 10^3/uL (4.8-10.8)
--- NOTE | 2024-07-16 12:16 | PTCARENOTE ---
pt VSS, no changes in assessment. pt ambulates to bathroom independently. IS encouraged. lab work drawn, SEARCH MARKETING COORDINATOR aware of results.
--- NOTE | 2024-07-16 12:47 | CM ---
Addendum entered by RADHA Powell 07/16/24 16:25:
Met w/ patient at bedside; patient feels well. Reviewed DC plan. No other needs noted.
Addendum entered by RADHA Powell 07/16/24 15:09:
[facility] FAX- [phone]
Original Note:
CM following for DC planning needs.
Attempted to meet w/ patient but patient was with RN- will re-attempt later.
DC plan is for home w/ VN. Referral made to [facility], accepted.
Will follow.
[2024-07-16] MEDS: FERRLECIT 110 MG IV (14:28)
[2024-07-16] MEDS: NSS IV (15:15)
--- NOTE | 2024-07-16 15:16 | PTCARENOTE ---
pt VSS, no changes in assessment. pt ambulated in hallway w/ stand by assist. pt placed to bed for nap. resting between care.
[2024-07-16] MEDS: MAGNESIUM OXIDE PO (20:44)
[2024-07-16] MEDS: SENOKOT-S PO (20:44)
--- NOTE | 2024-07-16 21:00 | PTCARENOTE ---
Patient received OOB in chair watching television. Patient A+A+Ox3. No neurological deficits noted. No c/o pain or discomfort. Room air. SpO2 94%. Chest tube dressing intact. Mild GUAJARDO. Sinus Rhythm. Heart rate 70's. Blood pressure 105/56
(68). No c/o chest pain, pressure or discomfort. Normoactive bowel sounds. No BM. No c/o nausea. No vomiting. Voiding without difficulty. Positive, palpable radial pulses. Positive Dorsalis pedis pulses via Doppler. Sternal incision -
Surgical adhesive - Open to air. Right groin puncture site intact. Right lower extremity incision - Surgical adhesive - Intact - Open to air. Patient ambulated in hallway without difficulty. Sternal precautions. Patient to bathroom then to bed.
Assessment as documented.
[2024-07-16] MEDS: AMBIEN PO (22:45)
[2024-07-16] MEDS: AMBIEN 5 MG PO (22:51)
--- NOTE | 2024-07-17 00:30 | PTCARENOTE ---
Patient sleeping without difficulty. O2 2L via NC HS. No further changes from previous assessment.
[2024-07-17 05:10] VITALS: BP 127/67
[2024-07-17] MEDS: XANAX 0.25 MG PO (05:38)
[2024-07-17] MEDS: TYLENOL 1000 MG PO (05:38)
[2024-07-17 05:56] LABS: Hematocrit 25.8 % (37.0-47.0); Hemoglobin 8.5 g/dL (12.0-16.0); Mean Corp Hgb Conc. 32.9 g/dL (33.0-37.0); Mean Corpuscular Hgb 29.4 pg (27.0-31.0); Mean Corpuscular Volume 89.3 fL (81.0-99.0); Platelet Count 223 10^3/uL (130-400); Red Blood Cell Count 2.89 10^6/uL (4.20-5.40); Red Cell Dist. Width 13.7 % (11.5-14.5); White Blood Cell Count 8.5 10^3/uL (4.8-10.8)
[2024-07-17 06:00] VITALS: BMI 29.1
[2024-07-17 06:08] LABS: Blood Urea Nitrogen 10 mg/dl (7-17); Calcium 9.1 mg/dl (8.4-10.2); Carbon Dioxide 29 mmol/L (22-30); Chloride 102 mmol/L (98-107); Estimated Creatinine Clearance 49 ml/min; Glucose 103 mg/dl (70-99); Magnesium 2.5 mg/dl (1.6-2.3); Potassium 3.9 mmol/L (3.5-5.1); Sodium 137 mmol/L (135-145); eGFR > 60.00
--- NOTE | 2024-07-17 06:15 | PTCARENOTE ---
Patient A+A+Ox3. No neurological deficits noted. Resting in bed. AM lab work collected and sent. Patient ambulated to bathroom with minimal assistance. Steady gait. No c/o headache, dizziness or lightheadedness. Standing scale weight 65.2 kg.
Patient resting OOB in chair watching television. Xanax 0.25 mg PO ordered by PA and given. Assessment/Interventions as documented.
--- NOTE | 2024-07-17 08:13 | W.PN.CT ---
Today's Communication / Plan
-
-pod #4
-doing well, no issues overnight
-follow 2v-CXR today
-ambulate, encourage IS
-likely d/c todaly
Assessment / Plan
-
Assessment:
-S/P Standard sternotomy/ CABG x 4 (In situ CONNELLY to LAD, Ao to RSVG to OM 1, Ao to RSVG to RPL B sequential to RPDA)/Harvesting of internal mammary artery/Endoscopic vein harvesting of right lower extremity/Left atrial appendage exclusion [35 mm
clip], by Dr Perez, 07/13/24, pod#4
-Obstructive CAD involving 80% RCA/80% distal LM
-Abnormal CT Angiogram coronary calcium score
-Strong family hx of CAD
-LVEF 55-60% per intraop BERNARDO
-Mild TR
-HLD
-Class 1 obesity (BMI 30)
-GERD/Hiatal hernia
-Insomnia
-Depression/anxiety
-Vertigo
-S/p cardiac cath, 06/29/24
-S/p Cataract surgery, 09/2023
-S/P Appendectomy
-Acute postop blood loss/Anemia (stable without transfusion)
-Acute postop atelectasis
-Acute postop hypovolemia with subsequent hypervolemia
-Acute postop fever likely d/t atelectasis
-Acute postop hyponatremia
Discussed patient care with: Nursing and Care Team
Subjective
Procedure
S/P Standard sternotomy/ CABG x 4 (In situ CONNELLY to LAD, Ao to RSVG to OM 1, Ao to RSVG to RPL B sequential to RPDA)/Harvesting of internal mammary artery/Endoscopic vein harvesting of right lower extremity/Left atrial appendage exclusion [35 mm
clip], by Dr Perez, 07/13/24
-
Date of Service: July 17, 2024
Objective Data
-
Lab Results
07/17/24 05:28
07/17/24 05:28
PT 16.8 Sec (11.4-14.6) H 07/13/24 13:13
INR 1.34 07/13/24 13:13
APTT 26.8 Sec (23.4-35.0) 07/13/24 13:13
Vital Signs
Vital Signs
Temp Pulse Resp BP Pulse Ox
98.7 F 70 16 127/67 97
07/17/24 05:10 07/17/24 05:10 07/17/24 05:10 07/17/24 05:10 07/17/24 05:10
CT Intake/Output/Weight
07/16/24 07/17/24 07/17/24
18:59 06:59 18:59
Intake Total 60 / 540 480 / 540
Output Total 1750 / 2825 1075 / 2825
Balance -1690 / -2285 -595 / -2285
SaO2: 97
Physical Exam
-
General: Awake and AOx3
Cardiovascular: Regular rate & rhythm, No Murmurs and No Rub
Respiratory: Clear and Decreased Breath Sounds
Sternum: Stable
Incision: Clean, Dry and Intact
Extremities: No Edema
Abdomen: soft, nontender, nondistended, + bowel sounds
Data Reviewed
-
Lab Results: Results Reviewed
Medications: Active Meds Reviewed
Chest X-Ray: Report Reviewed and Image Reviewed
ECG: Report Reviewed and Image Reviewed
[2024-07-17] MEDS: BACTROBAN 2% OINTMENT 1 APPLIC NASAL (08:30)
[2024-07-17] MEDS: LIDOCAINE 4% PATCH 1 PATCH TOPICAL (08:30)
[2024-07-17] MEDS: ZOLOFT 150 MG PO (08:30)
[2024-07-17 08:34] VITALS: BP 104/52
[2024-07-17] MEDS: PACERONE 200 MG PO (08:35)
[2024-07-17] MEDS: CRESTOR 20 MG PO (08:35)
[2024-07-17] MEDS: PROTONIX 40 MG PO (08:35)
[2024-07-17] MEDS: SENOKOT-S 1 TABLET PO (08:35)
[2024-07-17] MEDS: PLAVIX 75 MG PO (08:35)
[2024-07-17] MEDS: MAGNESIUM OXIDE 500 MG PO (08:35)
[2024-07-17] MEDS: NSS IV (08:35)
[2024-07-17] MEDS: LOW STRENGTH ASPIRIN 81 MG PO (08:35)
[2024-07-17] MEDS: NEURONTIN 100 MG PO (08:35)
--- NOTE | 2024-07-17 08:45 | PTCARENOTE ---
Assumed care of patient at 0700. Pt is awake, alert, and oriented. No complaints of pain. Pt remains SR with HR 70's. BP 104/52 MAP 67. Pulse oximetry 97% on room air. Pt tolerating PO diet. Voiding without issue. Midsternal incision approximated
and GUMMING MACHINE OPERATOR. Right leg incision approximated and LANCE. Right groin puncture intact. Right arm IV intact.
[2024-07-17 09:21] VITALS: BP 97/54
[2024-07-17 09:32] VITALS: BP 109/60
[2024-07-17 09:34] VITALS: BP 109/60; BP 97/54; PULSE 79; O2SAT 96; O2SAT 98
--- NOTE | 2024-07-17 10:09 | W.PN.CD ---
Today's Communication / Plan
-
cont ASA, Plavix, statin, metoprolol
Impression / Plan
-
Impression/Plan: 78F with an elevated coronary calcium score who endorsed chest discomfort and had a CT angiogram which was abnormal and prompted cardiac catheterization. Cardiac catheterization demonstrated severe CAD with high-grade calcific
distal left main disease. She is admitted for elective CABG.
#CAD
-S/P CABG x 4 (In situ CONNELLY to LAD, SVG to OM 1, sequential SVG to RPLB to RPDA) & #[address] Perez, 07/13/2024.
-Pre-LVEF 50%, post LVEF 60% without RWMA.
-High dose, high potency statin.
-Aspirin/clopidogrel
#Dyslipidemia
-Chronic.
-Continue rosuvastatin 20 mg, goal LDL <55.
#Anemia
-Acute, post operative.
-Hbgrelatively stable
Outpatient artificial flowers dyer: Dr. Alexander Franklin
DATA:
Cardiac Catheterization, 06/30/2024:
CONCLUSIONS
1. Severe coronary artery disease as described with high grade calcific distal left main disease.
2. Normal LV filling pressure and no aortic stenosis.
Intraoperative BERNARDO, 07/13/2024:
CONCLUSIONS
Normal left ventricular size and systolic function, stage I diastolic
dysfunction, no regional wall motion abnormalities seen.
Normal right ventricular size and function.
The aorta has atheroma less than 5 mm and mild calcifications.
Mild left atrial enlargement.
Trivial to mild MR and TR.
POST OPERATIVE FINDINGS
Status post CABG x 4, the left ventricle is vigorously brandy, EF 55 to
60%, patient is in sinus bradycardia. No regional wall motion abnormalities
seen.
Status post left atrial appendage exclusion, the clip is well-seated, no flow
seen through the left atrial appendage remnant.
Normal right ventricular size and function.
Mild TR. Trivial to mild MR. No aortic valve abnormalities.
Physical Exam
Vital Signs/Labs
Vital Signs
Temp Pulse Resp BP Pulse Ox
98.4 F 75 18 104/52 97
07/17/24 08:00 07/17/24 08:34 07/17/24 08:00 07/17/24 08:34 07/17/24 08:43
07/16/24 07/17/24 07/18/24
06:59 06:59 06:59
Actual Weight 65.9 kg 65.2 kg
07/17/24 05:28
07/17/24 05:28
PT 16.8 Sec (11.4-14.6) H 07/13/24 13:13
INR 1.34 07/13/24 13:13
APTT 26.8 Sec (23.4-35.0) 07/13/24 13:13
Magnesium 2.5 mg/dl (1.6-2.3) H 07/17/24 05:28
Physical Exam
Constitutional: No acute distress and Comfortable
EENT: Moist mucous membranes
Cardiovascular: Rhythm & rate is regular, Pedal edema is absent, JVD pressure is normal and Systolic murmur absent
Respiratory: Respiratory effort normal and Lungs clear to auscul.
Neuro/Psych: AO x 3
Data Reviewed
-
Date of Service: July 17, 2024
EKG: Other (Tele: SR 70s)
Labs: Labs Reviewed by me
--- NOTE | 2024-07-17 10:35 | W.[place]-PDMP ---
[place]-PD[place]
-
Checked the [place]- Prescription Drug Monitoring Program website, no red flags identified; safe to proceed with prescription.
--- NOTE | 2024-07-17 10:35 | W.DCSUMMARY ---
Discharge Summary
Discharge Data
Date of Admission: 07/13/24
Date of Discharge: 07/17/24
-
Pending Results: No
Hospital Course
Primary care physician:
Kt Early MD
Outpatient slip mixer:
Alexander Magana MD
Inpatient consultants:
CBC
Procedures:
1. 07/13/24: Coronary artery bypass grafting x 4 (In situ CONNELLY to LAD, Ao to RSVG to OM 1, Ao to RSVG to RPL B sequential to RPDA)
Primary Diagnosis:
1. CAD
2. Mild TR
3. HLD
4. Class 1 obesity (BMI 30)
5. GERD/Hiatal hernia
6. Insomnia
7. Depression/anxiety
8. Vertigo
Secondary Diagnoses:
1. Acute postop blood loss/Anemia (stable without transfusion)
2. Acute postop atelectasis
3. Acute postop hypovolemia with subsequent hypervolemia
4. Acute postop fever likely d/t atelectasis
5. Acute postop hyponatremia
HPI: This is a 78-year-old female who has a strong family history of coronary artery disease. She underwent left heart cath performed on 06/29/24 for symptoms of GERD which was concerning for stable angina. She was found to have high-grade left
main disease on CT angiogram of the chest prior to this. Her left heart cath was reviewed and she was found to have a large eccentric 80% calcified lesion in the distal left main as well as a 50 to 60% calcified proximal circumflex. Appearance of
this lesion, PCI would likely be complex. She was referred to CT surgery for evaluation.
Hospital course: The patient was admitted with same-day admissions taken the OR and underwent coronary artery bypass grafting x 4. She tolerated the procedure well and was transferred to the CVICU in stable condition on and off Cardene and
Levophed for blood pressure lability. She was able to be extubated later that evening. Postop day 1 her left pleural chest tube came out she was still a bit hypotensive so lactated Ringer's were administered and her beta-caitlin was held.
Presented to she again refused quite some 25% albumin for blood pressure support her remaining chest tubes and pacemaker wires were removed. She continued to do well and her blood pressure slowly improved, her beta-caitlin was restarted on
postoperative day 4. She remained in normal sinus rhythm postoperatively. On postop day 4 it was said that she could safely be discharged home. She was given explicit instructions on wound care, physical activity, and diet.
Home medication changes:
Please see discharge medication list in the discharge packet
Discharge Plan
-
Patient Disposition: Home (Routine Discharge)
Discharge Diagnosis/Procedures: CABG x 4, left atrial appendage clip
Diet: Low Cholesterol and Low Sodium
Activity: No strenuous activity
Driving Restrictions: Not until seen by your Dr
Bathing Restrictions: OK to Shower
Other Services: Cardiac Rehab
Specialty Instructions: Weigh Daily- Call MD for wt gain/loss 3 lbs overnight/5 lbs in 1 week
Activity Restrictions/Additional Instructions:
Please call to make appointments for Phase II Cardiac Rehab:
1) [facility] (10 min away)
[address] [place]
[phone]
2) [facility]
[address] [place]
[phone]
ACTIVITY:
-No strenuous activity: no heavy lifting, pushing, pulling anything over 15 pounds for one month
-continue to use stairs as tolerated
DRIVING RESTRICTIONS:
-No driving for one month or until approved by your surgeon
WOUND CARE:
-Shower daily. Use soap & water.
-No lotions, creams or powders on incision area.
DIET:
-continue a low fat/low cholesterol diet.
-IF you are diabetic, continue carb controlled diet.
CARDIAC REHAB:
-Please make appointment to start in 5-6 weeks with your local hospital program. (See Cardiac Rehabilitation Discharge Booklet).
SPECIALTY INSTRUCTIONS:
-Weigh yourself daily. Call your physician for any weight gain/loss of 3 lbs overnight or 5 lbs in one week.
-REPORT any clicking noise or uneven appearance of your sternum to your surgeon immediately.
-If you smoke, you are instructed to quit. The [place] smoking hotline phone number is [phone]
Referrals:
[facility] [Outside] (FAX- [phone])
Kt Early MD [Family Provider] -
Alexander Magana MD [Active] - 08/26/24 12:20 pm
Donovan Perez MD [Active] - 08/18/24 1:45 pm
Prescriptions:
New
acetaminophen 325 mg Tablet
650 mg PO Q4HPRN PRN (Reason: mild pain,headache,temp >101F ) Qty: 0 0RF
clopidogrel 75 mg tablet
75 mg PO DAILY 30 Days Qty: 30 2RF
gabapentin 100 mg Capsule
100 mg PO TID 7 Days Qty: 21 0RF
tramadol 50 mg Tablet
50 mg PO Q6HPRN PRN (Reason: incisional moderate pain) Qty: 20 0RF
metoprolol tartrate 25 mg Tablet
12.5 mg PO Q12 Qty: 30 2RF
Continued
famotidine [Pepcid] 40 mg Tablet
40 mg PO BID
aspirin 81 mg Tablet,Delayed Release (Dr/Ec)
81 mg PO DAILY
alprazolam [Xanax] 0.25 mg Tablet
0.25 mg PO PRN PRN (Reason: ANXIETY)
zolpidem [Ambien] 5 mg Tablet
5 mg PO HS
rosuvastatin [Crestor] 20 mg Tablet
20 mg PO DAILY
cholecalciferol (vitamin D3) [Vitamin D3] 50 mcg (2,000 unit) Capsule
100 mcg PO DAILY
sertraline 150 mg Capsule
150 mg PO DAILY
Discontinued
nitroglycerin 0.4 mg tablet, sublingual
0.4 mg sublingual [id number] PRN (Reason: chest pain) Qty: 25 5RF
Discharge Orders:
Discharge Patient (As Directed); Ordered 07/17/24
Ordered By: Dylon Worley
Care Plan Goals
Care Plan Goals:
Problem: Readiness for enhanced knowledge related to diagnosis and treatment plan
Goal: Understand your diagnosis and treatment plan needs, including medications if applicable.
Instructions: Know your diagnosis, underlying causes and treatment plan options, including medications if applicable. Consult with your health care team to learn about your diagnosis and treatment plan, including medications if applicable.
Discharge Date and Time
Print Language: KENYAN
[2024-07-17 11:54] VITALS: BP 129/69
--- NOTE | 2024-07-17 14:15 | PTCARENOTE ---
Steps completed with cardiac rehab. 2 view x-ray done. Pt remains SR with HR 70's. BP 129/69 MAP 81. Pulse oximetry 97% on room air. Discharge order received. Reviewed discharge instructions with pt and pt's niece. Questions addressed. PIV removed.
Pt stable at discharge. Pt brought out to car via wheelchair and staff escort.
== END 2024-07-17 14:19 | disposition home health service (06) | DRG 236 ==
LOC: CVICU 07:33
PROVIDERS: Anesthesiology; Nurse Practitioner; ADMITTING PHYSICIAN Thoracic Surgery (Cardiothoracic Vascular Surgery); FAMILY PHYSICIAN Family Medicine; OTHER PHYSICIAN Internal Medicine
PROC: B24BZZ4 Ultrasonography of Heart with Aorta, Transesophageal (ICD-10-PCS; 2024-07-13)
PROC: 02L70CK Occlusion of Left Atrial Appendage with Extraluminal Device, Open Approach (ICD-10-PCS; 2024-07-13)
PROC: 02100Z9 Bypass Coronary Artery, One Artery from Left Internal Mammary, Open Approach (ICD-10-PCS; 2024-07-13)
PROC: 5A1221Z Performance of Cardiac Output, Continuous (ICD-10-PCS; 2024-07-13)
PROC: 021209W Bypass Coronary Artery, Three Arteries from Aorta with Autologous Venous Tissue, Open Approach (ICD-10-PCS; 2024-07-13)
PROC: 06BP4ZZ Excision of Right Saphenous Vein, Percutaneous Endoscopic Approach (ICD-10-PCS; 2024-07-13)
DX: I25.118 Atherosclerotic heart disease of native coronary artery with other forms of angina pectoris (principal); D62 Acute posthemorrhagic anemia; E87.1 Hypo-osmolality and hyponatremia; J98.11 Atelectasis; K21.9 Gastro-esophageal reflux disease without esophagitis; E78.00 Pure hypercholesterolemia, unspecified; I10 Essential (primary) hypertension; K44.9 Diaphragmatic hernia without obstruction or gangrene; F32.A Depression, unspecified; F41.9 Anxiety disorder, unspecified; E86.1 Hypovolemia; E16.2 Hypoglycemia, unspecified; E66.811 Obesity, class 1; I36.1 Nonrheumatic tricuspid (valve) insufficiency; R50.82 Postprocedural fever; E87.70 Fluid overload, unspecified; G47.00 Insomnia, unspecified; I95.81 Postprocedural hypotension; Z68.30 Body mass index [BMI] 30.0-30.9, adult; Z79.82 Long term (current) use of aspirin; Z79.899 Other long term (current) drug therapy; Z82.49 Family history of ischemic heart disease and other diseases of the circulatory system
CPT/HCPCS: 36415; 71045; 71046; 80048; 80053; 81003; 81015; 82248; 82330; 82565; 82805; 82947; 82962; 83036; 83735; 84132; 84302; 84520; 85014; 85018; 85025; 85027; 85049; 85610; 85730; 86850; 86900; 86901; 86920; 87070; 87086; 93005; 93312; 93320; 93325; 93880; 94002; J2916; P9047